=== PATIENT | male | born 1970 | race African-American/Black ===

== ENCOUNTER 2020-10-22 13:58 | Inpatient (IN) | payer OTHER ==
[2020-10-22 15:22] VITALS: BMI 49.8
[2020-10-22] MEDS ORDERED: P-EPHED 60MG/TRIPROLIDI 2.5MG TABLET PO PRN (21:08)
[2020-10-22] MEDS ORDERED: guaiFENesin 200 MG/10 ML 10 ML UNIT-DOSE CUPS PO PRN (21:08)
[2020-10-22] MEDS ORDERED: LOPERAMIDE HCL 2 MG CAPSULE PO PRN (21:08)
[2020-10-22] MEDS ORDERED: MAGNESIUM HYDROX 2400MG/30ML ORAL SUSPENSION 30 ML CUP PO PRN (21:08)
[2020-10-22] MEDS ORDERED: MAGNESIUM CITRATE 300 ML BOTTLE PO PRN (21:08)
[2020-10-22] MEDS ORDERED: AMMONIUM LACTATE 12% LOTION 225 GM BOTTLE TP PRN (21:15)
[2020-10-22] MEDS ORDERED: COLLOIDAL OATMEAL 1 EACH PACKET TP SCH (21:15)
[2020-10-22] MEDS: MELATONIN 5 MG TABLETS PO SCH (22:36)
[2020-10-22] MEDS: THIAMINE HCL 100 MG TABLET (FP) PO SCH (22:36)
[2020-10-22] MEDS: TOLNAFTATE 1% CREAM 15 GM TUBE TP SCH (22:38)
[2020-10-23] MEDS: METHADONE HCL 40 MG DISPERSABLE TABLET PO SCH (09:06)
[2020-10-23] MEDS: PRENATAL VITAMINS W/ FOLIC ACID TABLET (FP) PO SCH (09:07)
[2020-10-23] MEDS: TOLNAFTATE 1% CREAM 15 GM TUBE TP SCH ×2 (09:07→21:17)
[2020-10-23] MEDS: ACETAMINOPHEN 325 MG TABLET (FP) PO PRN ×3 (09:10→21:16)
[2020-10-23 13:10] LABS: URINE APPEARANCE CLEAR; URINE BILIRUBIN NEGATIVE (NEGATIVE); URINE COLOR YELLOW; URINE GLUCOSE (UA) NEGATIVE (NEGATIVE); URINE KETONE NEGATIVE (NEGATIVE); URINE LEUK ESTERASE NEGATIVE (NEGATIVE); URINE NITRITE NEGATIVE (NEGATIVE); URINE PROTEIN NEGATIVE (NEGATIVE); URINE UROBILINOGEN 0.2 mg/dL (0.2-1.0)
[2020-10-23 13:13] LABS: POTASSIUM 4.2 mmol/L (3.5-5.1)
[2020-10-23 13:21] LABS: HEMATOCRIT 39.1 % (35.4-49); HEMOGLOBIN 12.8 GM/dL (11.7-16.9); MCHC 32.9 g/dl (32.0-35.9); MEAN CELL VOLUME 91.3 fl (80-96); MEAN PLT VOLUME 7.3 fl (7.5-11.1); PLATELET COUNT 404 K/MM3 (134-434); RBC 4.28 M/mm3 (4.00-5.60); RDW 14.3 % (11.9-15.9); WHITE BLOOD COUNT 10.5 K/mm3 (4.0-10.0)
[2020-10-23 13:25] LABS: ALBUMIN 3.3 g/dl (3.4-5.0); CALCIUM 8.4 mg/dL (8.5-10.1)
[2020-10-23 13:26] LABS: BLOOD UREA NITROGEN 14.2 mg/dL (7-18)
[2020-10-23 13:29] LABS: BILIRUBIN,TOTAL 0.3 mg/dL (0.2-1); CREATININE 0.9 mg/dL (0.55-1.3)
[2020-10-23 13:30] LABS: TOT PROT 7.3 g/dl (6.4-8.2)
[2020-10-23] MEDS: NICOTINE POLACRILEX 2 MG GUM BC PRN ×2 (14:03→21:18)
[2020-10-23] MEDS: COLLOIDAL OATMEAL 1 BAR EACH TP PRN (14:22)
[2020-10-23] MEDS: hydrOXYzine PAMOATE 25 MG CAPSULE (FP) PO PRN (15:56)
[2020-10-23] MEDS: MELATONIN 5 MG TABLETS PO SCH (21:16)
[2020-10-23] MEDS: THIAMINE HCL 100 MG TABLET (FP) PO SCH (21:17)
[2020-10-24] MEDS: METHADONE HCL 40 MG DISPERSABLE TABLET PO SCH (06:15)
[2020-10-24] MEDS: PRENATAL VITAMINS W/ FOLIC ACID TABLET (FP) PO SCH (09:59)
[2020-10-24] MEDS: TOLNAFTATE 1% CREAM 15 GM TUBE TP SCH ×2 (10:00→22:02)
[2020-10-24] MEDS: ARIPiprazole 15 MG TABLET PO SCH (10:00)
[2020-10-24] MEDS: ACETAMINOPHEN 325 MG TABLET (FP) PO PRN ×2 (10:01→14:55)
[2020-10-24] MEDS: NICOTINE POLACRILEX 2 MG GUM BC PRN ×2 (10:01→14:57)
[2020-10-24] MEDS: MELATONIN 5 MG TABLETS PO SCH (22:02)
[2020-10-24] MEDS: THIAMINE HCL 100 MG TABLET (FP) PO SCH (22:03)
[2020-10-25] MEDS: METHADONE HCL 40 MG DISPERSABLE TABLET PO SCH (06:26)
[2020-10-25] MEDS: PRENATAL VITAMINS W/ FOLIC ACID TABLET (FP) PO SCH (10:07)
[2020-10-25] MEDS: ARIPiprazole 15 MG TABLET PO SCH (10:09)
[2020-10-25] MEDS: MAG HYDROX/AL HYDROX/SIMETH 30 ML UNIT-DOSE CUP PO PRN (10:10)
[2020-10-25] MEDS: ACETAMINOPHEN 325 MG TABLET (FP) PO PRN (10:10)
[2020-10-25] MEDS: NICOTINE POLACRILEX 2 MG GUM BC PRN ×2 (10:13→17:05)
[2020-10-25] MEDS: TOLNAFTATE 1% CREAM 15 GM TUBE TP SCH ×2 (10:33→21:55)
[2020-10-25] MEDS: MELATONIN 5 MG TABLETS PO SCH (21:55)
[2020-10-25] MEDS: THIAMINE HCL 100 MG TABLET (FP) PO SCH (21:55)
[2020-10-26] MEDS: METHADONE HCL 40 MG DISPERSABLE TABLET PO SCH (05:58)
[2020-10-26] MEDS: ARIPiprazole 15 MG TABLET PO SCH (10:08)
[2020-10-26] MEDS: PRENATAL VITAMINS W/ FOLIC ACID TABLET (FP) PO SCH (10:08)
[2020-10-26] MEDS: ACETAMINOPHEN 325 MG TABLET (FP) PO PRN (10:10)
[2020-10-26] MEDS: TOLNAFTATE 1% CREAM 15 GM TUBE TP SCH ×2 (10:12→21:46)
[2020-10-26] MEDS: hydrOXYzine PAMOATE 25 MG CAPSULE (FP) PO PRN (12:45)
[2020-10-26] MEDS: cloNIDine HCL 0.1 MG TABLET PO PRN ×2 (12:45→21:45)
[2020-10-26] MEDS: NICOTINE POLACRILEX 2 MG GUM BC PRN (15:51)
[2020-10-26] MEDS: MELATONIN 5 MG TABLETS PO SCH (21:46)
[2020-10-26] MEDS: THIAMINE HCL 100 MG TABLET (FP) PO SCH (21:46)
[2020-10-27] MEDS: METHADONE HCL 40 MG DISPERSABLE TABLET PO SCH (06:22)
[2020-10-27] MEDS: cloNIDine HCL 0.1 MG TABLET PO PRN ×2 (06:22→21:43)
[2020-10-27] MEDS: NICOTINE POLACRILEX 2 MG GUM BC PRN ×2 (08:38→21:45)
[2020-10-27] MEDS: ARIPiprazole 15 MG TABLET PO SCH (10:07)
[2020-10-27] MEDS: PRENATAL VITAMINS W/ FOLIC ACID TABLET (FP) PO SCH (10:07)
[2020-10-27] MEDS: ACETAMINOPHEN 325 MG TABLET (FP) PO PRN (10:08)
[2020-10-27] MEDS: TOLNAFTATE 1% CREAM 15 GM TUBE TP SCH ×2 (10:09→21:44)
[2020-10-27] MEDS: THIAMINE HCL 100 MG TABLET (FP) PO SCH (21:43)
[2020-10-27] MEDS: MELATONIN 5 MG TABLETS PO SCH (21:44)
[2020-10-28] MEDS: cloNIDine HCL 0.1 MG TABLET PO PRN ×2 (06:14→10:19)
[2020-10-28] MEDS: METHADONE HCL 40 MG DISPERSABLE TABLET PO SCH (06:14)
[2020-10-28] MEDS: NICOTINE POLACRILEX 2 MG GUM BC PRN ×4 (06:18→14:51)
[2020-10-28] MEDS: PRENATAL VITAMINS W/ FOLIC ACID TABLET (FP) PO SCH (10:19)
[2020-10-28] MEDS: TOLNAFTATE 1% CREAM 15 GM TUBE TP SCH ×2 (10:19→21:44)
[2020-10-28] MEDS: ARIPiprazole 15 MG TABLET PO SCH (10:19)
[2020-10-28] MEDS: ACETAMINOPHEN 325 MG TABLET (FP) PO PRN (10:21)
[2020-10-28] MEDS: MELATONIN 5 MG TABLETS PO SCH (21:44)
[2020-10-28] MEDS: THIAMINE HCL 100 MG TABLET (FP) PO SCH (21:45)
[2020-10-29] MEDS: NICOTINE POLACRILEX 2 MG GUM BC PRN ×3 (06:09→12:19)
[2020-10-29] MEDS: cloNIDine HCL 0.1 MG TABLET PO PRN ×2 (06:09→21:22)
[2020-10-29] MEDS: METHADONE HCL 40 MG DISPERSABLE TABLET PO SCH (06:09)
[2020-10-29] MEDS ORDERED: PT OWN MED DRAWER 7, Y5N ONE (08:51)
[2020-10-29] MEDS: ACETAMINOPHEN 325 MG TABLET (FP) PO PRN ×2 (10:03→16:55)
[2020-10-29] MEDS: ARIPiprazole 15 MG TABLET PO SCH (10:03)
[2020-10-29] MEDS: PRENATAL VITAMINS W/ FOLIC ACID TABLET (FP) PO SCH (10:03)
[2020-10-29] MEDS: MAG HYDROX/AL HYDROX/SIMETH 30 ML UNIT-DOSE CUP PO PRN (10:06)
[2020-10-29] MEDS: TOLNAFTATE 1% CREAM 15 GM TUBE TP SCH ×2 (10:10→21:24)
[2020-10-29] MEDS: NICOTINE POLACRILEX 4 MG GUM BUC PRN ×4 (13:34→21:23)
[2020-10-29] MEDS: MELATONIN 5 MG TABLETS PO SCH (21:23)
[2020-10-29] MEDS: THIAMINE HCL 100 MG TABLET (FP) PO SCH (21:23)
[2020-10-30] MEDS: METHADONE HCL 40 MG DISPERSABLE TABLET PO SCH (06:02)
[2020-10-30] MEDS: NICOTINE POLACRILEX 4 MG GUM BUC PRN ×4 (06:05→18:50)
[2020-10-30] MEDS ORDERED: PT OWN MED DRAWER 7, Y5N ONE (09:11)
[2020-10-30] MEDS: TOLNAFTATE 1% CREAM 15 GM TUBE TP SCH ×2 (10:04→21:30)
[2020-10-30] MEDS: ARIPiprazole 15 MG TABLET PO SCH (10:04)
[2020-10-30] MEDS: PRENATAL VITAMINS W/ FOLIC ACID TABLET (FP) PO SCH (10:04)
[2020-10-30] MEDS: ACETAMINOPHEN 325 MG TABLET (FP) PO PRN ×2 (10:05→18:50)
[2020-10-30] MEDS: THIAMINE HCL 100 MG TABLET (FP) PO SCH (21:29)
[2020-10-30] MEDS: MELATONIN 5 MG TABLETS PO SCH (21:29)
[2020-10-31] MEDS: METHADONE HCL 40 MG DISPERSABLE TABLET PO SCH (06:31)
[2020-10-31] MEDS ORDERED: PT OWN MED DRAWER 7, Y5N ONE (09:02)
[2020-10-31] MEDS: ACETAMINOPHEN 325 MG TABLET (FP) PO PRN ×2 (09:55→21:17)
[2020-10-31] MEDS: ARIPiprazole 15 MG TABLET PO SCH (09:56)
[2020-10-31] MEDS: TOLNAFTATE 1% CREAM 15 GM TUBE TP SCH ×2 (09:56→21:51)
[2020-10-31] MEDS: NICOTINE POLACRILEX 4 MG GUM BUC PRN ×4 (09:56→21:18)
[2020-10-31] MEDS: PRENATAL VITAMINS W/ FOLIC ACID TABLET (FP) PO SCH (09:56)
[2020-10-31] MEDS: MAG HYDROX/AL HYDROX/SIMETH 30 ML UNIT-DOSE CUP PO PRN (18:51)
[2020-10-31] MEDS: MELATONIN 5 MG TABLETS PO SCH (21:16)
[2020-10-31] MEDS: cloNIDine HCL 0.1 MG TABLET PO PRN (21:16)
[2020-10-31] MEDS: THIAMINE HCL 100 MG TABLET (FP) PO SCH (21:16)
[2020-11-01] MEDS: cloNIDine HCL 0.1 MG TABLET PO PRN (05:52)
[2020-11-01] MEDS: NICOTINE POLACRILEX 4 MG GUM BUC PRN ×5 (05:52→21:29)
[2020-11-01] MEDS: METHADONE HCL 40 MG DISPERSABLE TABLET PO SCH (05:52)
[2020-11-01] MEDS: PRENATAL VITAMINS W/ FOLIC ACID TABLET (FP) PO SCH (10:08)
[2020-11-01] MEDS: ARIPiprazole 15 MG TABLET PO SCH (10:09)
[2020-11-01] MEDS: ACETAMINOPHEN 325 MG TABLET (FP) PO PRN (10:09)
[2020-11-01] MEDS: TOLNAFTATE 1% CREAM 15 GM TUBE TP SCH ×2 (10:11→21:30)
[2020-11-01] MEDS: LIDOCAINE 5% TOPICAL PATCH TP SCH (14:49)
[2020-11-01] MEDS: METHOCARBAMOL 500 MG TABLET PO SCH ×3 (14:50→21:29)
[2020-11-01] MEDS: THIAMINE HCL 100 MG TABLET (FP) PO SCH (21:29)
[2020-11-01] MEDS: MELATONIN 5 MG TABLETS PO SCH (21:29)
[2020-11-01] MEDS: METHYL SALICYLATE/MENTHOL OINT 30 GM TUBE TP SCH (21:30)
[2020-11-01] MEDS: LIDOCAINE PATCH REMOVAL MC SCH (21:30)
[2020-11-02] MEDS: METHADONE HCL 40 MG DISPERSABLE TABLET PO SCH (05:50)
[2020-11-02] MEDS: cloNIDine HCL 0.1 MG TABLET PO PRN ×2 (05:53→10:02)
[2020-11-02] MEDS: NICOTINE POLACRILEX 4 MG GUM BUC PRN ×6 (05:53→21:12)
[2020-11-02] MEDS: PRENATAL VITAMINS W/ FOLIC ACID TABLET (FP) PO SCH (10:02)
[2020-11-02] MEDS: LIDOCAINE 5% TOPICAL PATCH TP SCH (10:02)
[2020-11-02] MEDS: METHOCARBAMOL 500 MG TABLET PO SCH ×4 (10:02→21:11)
[2020-11-02] MEDS: TOLNAFTATE 1% CREAM 15 GM TUBE TP SCH ×2 (10:03→21:12)
[2020-11-02] MEDS: ARIPiprazole 15 MG TABLET PO SCH (10:03)
[2020-11-02] MEDS: THIAMINE HCL 100 MG TABLET (FP) PO SCH (21:11)
[2020-11-02] MEDS: MELATONIN 5 MG TABLETS PO SCH (21:11)
[2020-11-02] MEDS: METHYL SALICYLATE/MENTHOL OINT 30 GM TUBE TP SCH (21:12)
[2020-11-02] MEDS: LIDOCAINE PATCH REMOVAL MC SCH (21:12)
[2020-11-03] MEDS: cloNIDine HCL 0.1 MG TABLET PO PRN ×2 (06:22→21:34)
[2020-11-03] MEDS: METHADONE HCL 40 MG DISPERSABLE TABLET PO SCH (06:22)
[2020-11-03] MEDS: NICOTINE POLACRILEX 4 MG GUM BUC PRN ×4 (06:23→19:34)
[2020-11-03] MEDS: TOLNAFTATE 1% CREAM 15 GM TUBE TP SCH ×2 (09:58→22:05)
[2020-11-03] MEDS: METHOCARBAMOL 500 MG TABLET PO SCH ×4 (09:58→21:37)
[2020-11-03] MEDS: PRENATAL VITAMINS W/ FOLIC ACID TABLET (FP) PO SCH (09:59)
[2020-11-03] MEDS: ARIPiprazole 15 MG TABLET PO SCH (09:59)
[2020-11-03] MEDS: LIDOCAINE 5% TOPICAL PATCH TP SCH (09:59)
[2020-11-03] MEDS: MELATONIN 5 MG TABLETS PO SCH (21:35)
[2020-11-03] MEDS: LIDOCAINE PATCH REMOVAL MC SCH (21:35)
[2020-11-03] MEDS: METHYL SALICYLATE/MENTHOL OINT 30 GM TUBE TP SCH (21:36)
[2020-11-03] MEDS: THIAMINE HCL 100 MG TABLET (FP) PO SCH (22:05)
[2020-11-04] MEDS: METHADONE HCL 40 MG DISPERSABLE TABLET PO SCH (06:13)
[2020-11-04] MEDS: NICOTINE POLACRILEX 4 MG GUM BUC PRN ×3 (06:13→20:23)
[2020-11-04] MEDS: cloNIDine HCL 0.1 MG TABLET PO PRN (06:13)
[2020-11-04] MEDS: METHOCARBAMOL 500 MG TABLET PO SCH ×4 (10:31→21:42)
[2020-11-04] MEDS: TOLNAFTATE 1% CREAM 15 GM TUBE TP SCH ×2 (10:31→21:42)
[2020-11-04] MEDS: PRENATAL VITAMINS W/ FOLIC ACID TABLET (FP) PO SCH (10:31)
[2020-11-04] MEDS: ARIPiprazole 15 MG TABLET PO SCH (10:31)
[2020-11-04] MEDS: LIDOCAINE 5% TOPICAL PATCH TP SCH (10:31)
[2020-11-04] MEDS: MAG HYDROX/AL HYDROX/SIMETH 30 ML UNIT-DOSE CUP PO PRN (12:01)
[2020-11-04] MEDS: THIAMINE HCL 100 MG TABLET (FP) PO SCH (21:42)
[2020-11-04] MEDS: METHYL SALICYLATE/MENTHOL OINT 30 GM TUBE TP SCH (21:42)
[2020-11-04] MEDS: MELATONIN 5 MG TABLETS PO SCH (21:42)
[2020-11-04] MEDS: LIDOCAINE PATCH REMOVAL MC SCH (21:42)
[2020-11-05] MEDS: METHADONE HCL 40 MG DISPERSABLE TABLET PO SCH (06:36)
[2020-11-05] MEDS: cloNIDine HCL 0.1 MG TABLET PO PRN ×2 (06:36→21:11)
[2020-11-05] MEDS: NICOTINE POLACRILEX 4 MG GUM BUC PRN ×5 (06:38→20:36)
[2020-11-05] MEDS: METHOCARBAMOL 500 MG TABLET PO SCH ×4 (10:17→21:11)
[2020-11-05] MEDS: PRENATAL VITAMINS W/ FOLIC ACID TABLET (FP) PO SCH (10:17)
[2020-11-05] MEDS: LIDOCAINE 5% TOPICAL PATCH TP SCH ×2 (10:18→10:57)
[2020-11-05] MEDS: ARIPiprazole 15 MG TABLET PO SCH (10:18)
[2020-11-05] MEDS: TOLNAFTATE 1% CREAM 15 GM TUBE TP SCH ×2 (10:19→21:12)
[2020-11-05] MEDS: MELATONIN 5 MG TABLETS PO SCH (21:11)
[2020-11-05] MEDS: LIDOCAINE PATCH REMOVAL MC SCH (21:11)
[2020-11-05] MEDS: METHYL SALICYLATE/MENTHOL OINT 30 GM TUBE TP SCH (21:11)
[2020-11-05] MEDS: THIAMINE HCL 100 MG TABLET (FP) PO SCH (21:12)
[2020-11-06] MEDS: METHADONE HCL 40 MG DISPERSABLE TABLET PO SCH (06:24)
[2020-11-06] MEDS: cloNIDine HCL 0.1 MG TABLET PO PRN ×2 (06:25→21:15)
[2020-11-06] MEDS: PRENATAL VITAMINS W/ FOLIC ACID TABLET (FP) PO SCH (09:56)
[2020-11-06] MEDS: ARIPiprazole 15 MG TABLET PO SCH (09:56)
[2020-11-06] MEDS: LIDOCAINE 5% TOPICAL PATCH TP SCH (09:56)
[2020-11-06] MEDS: METHOCARBAMOL 500 MG TABLET PO SCH ×4 (09:56→21:15)
[2020-11-06] MEDS: TOLNAFTATE 1% CREAM 15 GM TUBE TP SCH ×2 (09:57→21:16)
[2020-11-06] MEDS: NICOTINE POLACRILEX 4 MG GUM BUC PRN ×5 (09:58→21:39)
[2020-11-06] MEDS: THIAMINE HCL 100 MG TABLET (FP) PO SCH (21:15)
[2020-11-06] MEDS: MELATONIN 5 MG TABLETS PO SCH (21:15)
[2020-11-06] MEDS: METHYL SALICYLATE/MENTHOL OINT 30 GM TUBE TP SCH (21:16)
[2020-11-06] MEDS: LIDOCAINE PATCH REMOVAL MC SCH (21:16)
[2020-11-07] MEDS: METHADONE HCL 40 MG DISPERSABLE TABLET PO SCH (06:11)
[2020-11-07] MEDS: NICOTINE POLACRILEX 4 MG GUM BUC PRN ×6 (06:11→21:31)
[2020-11-07] MEDS: PRENATAL VITAMINS W/ FOLIC ACID TABLET (FP) PO SCH (10:08)
[2020-11-07] MEDS: METHOCARBAMOL 500 MG TABLET PO SCH ×4 (10:08→21:30)
[2020-11-07] MEDS: ARIPiprazole 15 MG TABLET PO SCH (10:08)
[2020-11-07] MEDS: TOLNAFTATE 1% CREAM 15 GM TUBE TP SCH ×2 (10:08→21:31)
[2020-11-07] MEDS: LIDOCAINE 5% TOPICAL PATCH TP SCH (10:09)
[2020-11-07] MEDS: MAG HYDROX/AL HYDROX/SIMETH 30 ML UNIT-DOSE CUP PO PRN (10:09)
[2020-11-07] MEDS ORDERED: MASKS NR ONE (10:44)
[2020-11-07] MEDS: MELATONIN 5 MG TABLETS PO SCH (21:30)
[2020-11-07] MEDS: THIAMINE HCL 100 MG TABLET (FP) PO SCH (21:30)
[2020-11-07] MEDS: LIDOCAINE PATCH REMOVAL MC SCH (21:30)
[2020-11-07] MEDS: METHYL SALICYLATE/MENTHOL OINT 30 GM TUBE TP SCH (21:31)
[2020-11-08] MEDS: cloNIDine HCL 0.1 MG TABLET PO PRN ×2 (06:11→21:15)
[2020-11-08] MEDS: METHADONE HCL 40 MG DISPERSABLE TABLET PO SCH (06:11)
[2020-11-08] MEDS: NICOTINE POLACRILEX 4 MG GUM BUC PRN ×6 (06:12→22:26)
[2020-11-08] MEDS: METHOCARBAMOL 500 MG TABLET PO SCH ×4 (10:13→21:15)
[2020-11-08] MEDS: PRENATAL VITAMINS W/ FOLIC ACID TABLET (FP) PO SCH (10:13)
[2020-11-08] MEDS: LIDOCAINE 5% TOPICAL PATCH TP SCH (10:13)
[2020-11-08] MEDS: ARIPiprazole 15 MG TABLET PO SCH (10:13)
[2020-11-08] MEDS: TOLNAFTATE 1% CREAM 15 GM TUBE TP SCH ×2 (10:14→21:16)
[2020-11-08] MEDS: THIAMINE HCL 100 MG TABLET (FP) PO SCH (21:14)
[2020-11-08] MEDS: MELATONIN 5 MG TABLETS PO SCH (21:16)
[2020-11-08] MEDS: METHYL SALICYLATE/MENTHOL OINT 30 GM TUBE TP SCH (21:16)
[2020-11-08] MEDS: LIDOCAINE PATCH REMOVAL MC SCH (21:16)
[2020-11-09] MEDS: cloNIDine HCL 0.1 MG TABLET PO PRN ×2 (06:29→21:33)
[2020-11-09] MEDS: NICOTINE POLACRILEX 4 MG GUM BUC PRN ×6 (06:29→21:34)
[2020-11-09] MEDS: METHADONE HCL 40 MG DISPERSABLE TABLET PO SCH (06:29)
[2020-11-09] MEDS: PRENATAL VITAMINS W/ FOLIC ACID TABLET (FP) PO SCH (10:18)
[2020-11-09] MEDS: ARIPiprazole 15 MG TABLET PO SCH (10:18)
[2020-11-09] MEDS: METHOCARBAMOL 500 MG TABLET PO SCH ×4 (10:18→21:33)
[2020-11-09] MEDS: LIDOCAINE 5% TOPICAL PATCH TP SCH (10:18)
[2020-11-09] MEDS: TOLNAFTATE 1% CREAM 15 GM TUBE TP SCH ×2 (10:18→21:33)
[2020-11-09] MEDS: THIAMINE HCL 100 MG TABLET (FP) PO SCH (21:33)
[2020-11-09] MEDS: METHYL SALICYLATE/MENTHOL OINT 30 GM TUBE TP SCH (21:35)
[2020-11-09] MEDS: LIDOCAINE PATCH REMOVAL MC SCH (21:56)
[2020-11-09] MEDS: MELATONIN 5 MG TABLETS PO SCH (21:56)
[2020-11-10] MEDS: METHADONE HCL 40 MG DISPERSABLE TABLET PO SCH (05:55)
[2020-11-10] MEDS: cloNIDine HCL 0.1 MG TABLET PO PRN ×2 (05:55→21:07)
[2020-11-10] MEDS: NICOTINE POLACRILEX 4 MG GUM BUC PRN ×5 (05:56→20:08)
[2020-11-10] MEDS: PRENATAL VITAMINS W/ FOLIC ACID TABLET (FP) PO SCH (10:03)
[2020-11-10] MEDS: TOLNAFTATE 1% CREAM 15 GM TUBE TP SCH ×2 (10:03→21:08)
[2020-11-10] MEDS: LIDOCAINE 5% TOPICAL PATCH TP SCH (10:03)
[2020-11-10] MEDS: ARIPiprazole 15 MG TABLET PO SCH (10:03)
[2020-11-10] MEDS: METHOCARBAMOL 500 MG TABLET PO SCH ×4 (10:03→21:07)
[2020-11-10] MEDS: METHYL SALICYLATE/MENTHOL OINT 30 GM TUBE TP SCH (21:08)
[2020-11-10] MEDS: THIAMINE HCL 100 MG TABLET (FP) PO SCH (21:08)
[2020-11-10] MEDS: LIDOCAINE PATCH REMOVAL MC SCH (21:08)
[2020-11-10] MEDS: MELATONIN 5 MG TABLETS PO SCH (21:08)
[2020-11-11] MEDS: METHADONE HCL 40 MG DISPERSABLE TABLET PO SCH (06:38)
[2020-11-11] MEDS: NICOTINE POLACRILEX 4 MG GUM BUC PRN ×4 (06:38→16:41)
[2020-11-11] MEDS: cloNIDine HCL 0.1 MG TABLET PO PRN (06:38)
[2020-11-11] MEDS: METHOCARBAMOL 500 MG TABLET PO SCH ×4 (09:53→22:30)
[2020-11-11] MEDS: PRENATAL VITAMINS W/ FOLIC ACID TABLET (FP) PO SCH (09:53)
[2020-11-11] MEDS: LIDOCAINE 5% TOPICAL PATCH TP SCH (09:53)
[2020-11-11] MEDS: ARIPiprazole 15 MG TABLET PO SCH (09:53)
[2020-11-11] MEDS: TOLNAFTATE 1% CREAM 15 GM TUBE TP SCH ×2 (10:25→22:30)
[2020-11-11] MEDS: THIAMINE HCL 100 MG TABLET (FP) PO SCH (22:30)
[2020-11-11] MEDS: METHYL SALICYLATE/MENTHOL OINT 30 GM TUBE TP SCH (22:30)
[2020-11-11] MEDS: MELATONIN 5 MG TABLETS PO SCH (22:30)
[2020-11-11] MEDS: LIDOCAINE PATCH REMOVAL MC SCH (22:30)
[2020-11-12] MEDS: cloNIDine HCL 0.1 MG TABLET PO PRN (06:07)
[2020-11-12] MEDS: METHADONE HCL 40 MG DISPERSABLE TABLET PO SCH (06:07)
[2020-11-12] MEDS: NICOTINE POLACRILEX 4 MG GUM BUC PRN ×4 (08:31→16:02)
[2020-11-12] MEDS: METHOCARBAMOL 500 MG TABLET PO SCH ×4 (10:31→23:02)
[2020-11-12] MEDS: PRENATAL VITAMINS W/ FOLIC ACID TABLET (FP) PO SCH (10:31)
[2020-11-12] MEDS: ARIPiprazole 15 MG TABLET PO SCH (10:31)
[2020-11-12] MEDS: TOLNAFTATE 1% CREAM 15 GM TUBE TP SCH ×2 (10:31→23:02)
[2020-11-12] MEDS: LIDOCAINE 5% TOPICAL PATCH TP SCH (10:33)
[2020-11-12] MEDS: LIDOCAINE PATCH REMOVAL MC SCH (22:25)
[2020-11-12] MEDS: MELATONIN 5 MG TABLETS PO SCH (22:25)
[2020-11-12] MEDS: METHYL SALICYLATE/MENTHOL OINT 30 GM TUBE TP SCH (22:25)
[2020-11-12] MEDS: THIAMINE HCL 100 MG TABLET (FP) PO SCH (23:03)
[2020-11-13] MEDS: METHADONE HCL 40 MG DISPERSABLE TABLET PO SCH (05:54)
[2020-11-13] MEDS: NICOTINE POLACRILEX 4 MG GUM BUC PRN ×6 (05:55→23:20)
[2020-11-13] MEDS: cloNIDine HCL 0.1 MG TABLET PO PRN ×2 (06:27→21:28)
[2020-11-13] MEDS: METHOCARBAMOL 500 MG TABLET PO SCH ×4 (10:06→21:27)
[2020-11-13] MEDS: ARIPiprazole 15 MG TABLET PO SCH (10:06)
[2020-11-13] MEDS: LIDOCAINE 5% TOPICAL PATCH TP SCH (10:06)
[2020-11-13] MEDS: PRENATAL VITAMINS W/ FOLIC ACID TABLET (FP) PO SCH (10:07)
[2020-11-13] MEDS: TOLNAFTATE 1% CREAM 15 GM TUBE TP SCH ×2 (10:07→21:28)
[2020-11-13] MEDS: THIAMINE HCL 100 MG TABLET (FP) PO SCH (21:27)
[2020-11-13] MEDS: MELATONIN 5 MG TABLETS PO SCH (21:28)
[2020-11-13] MEDS: LIDOCAINE PATCH REMOVAL MC SCH (21:28)
[2020-11-13] MEDS: METHYL SALICYLATE/MENTHOL OINT 30 GM TUBE TP SCH (21:28)
[2020-11-14] MEDS: NICOTINE POLACRILEX 4 MG GUM BUC PRN ×7 (06:19→22:09)
[2020-11-14] MEDS: METHADONE HCL 40 MG DISPERSABLE TABLET PO SCH (06:19)
[2020-11-14] MEDS: cloNIDine HCL 0.1 MG TABLET PO PRN ×2 (06:19→21:22)
[2020-11-14] MEDS: METHOCARBAMOL 500 MG TABLET PO SCH ×4 (10:21→21:22)
[2020-11-14] MEDS: LIDOCAINE 5% TOPICAL PATCH TP SCH (10:21)
[2020-11-14] MEDS: PRENATAL VITAMINS W/ FOLIC ACID TABLET (FP) PO SCH (10:21)
[2020-11-14] MEDS: TOLNAFTATE 1% CREAM 15 GM TUBE TP SCH ×2 (10:21→21:23)
[2020-11-14] MEDS: ARIPiprazole 15 MG TABLET PO SCH (10:21)
[2020-11-14] MEDS: THIAMINE HCL 100 MG TABLET (FP) PO SCH (21:23)
[2020-11-14] MEDS: LIDOCAINE PATCH REMOVAL MC SCH (21:23)
[2020-11-14] MEDS: MELATONIN 5 MG TABLETS PO SCH (21:23)
[2020-11-14] MEDS: METHYL SALICYLATE/MENTHOL OINT 30 GM TUBE TP SCH (21:23)
[2020-11-15] MEDS: METHADONE HCL 40 MG DISPERSABLE TABLET PO SCH (06:28)
[2020-11-15] MEDS: cloNIDine HCL 0.1 MG TABLET PO PRN (06:28)
[2020-11-15] MEDS: NICOTINE POLACRILEX 4 MG GUM BUC PRN ×6 (06:29→22:51)
[2020-11-15] MEDS: METHOCARBAMOL 500 MG TABLET PO SCH ×4 (10:09→22:45)
[2020-11-15] MEDS: LIDOCAINE 5% TOPICAL PATCH TP SCH (10:09)
[2020-11-15] MEDS: PRENATAL VITAMINS W/ FOLIC ACID TABLET (FP) PO SCH (10:09)
[2020-11-15] MEDS: ARIPiprazole 15 MG TABLET PO SCH (10:09)
[2020-11-15] MEDS: TOLNAFTATE 1% CREAM 15 GM TUBE TP SCH ×2 (10:10→22:52)
[2020-11-15] MEDS: LIDOCAINE PATCH REMOVAL MC SCH (22:45)
[2020-11-15] MEDS: METHYL SALICYLATE/MENTHOL OINT 30 GM TUBE TP SCH (22:52)
[2020-11-15] MEDS: THIAMINE HCL 100 MG TABLET (FP) PO SCH (22:52)
[2020-11-15] MEDS: MELATONIN 5 MG TABLETS PO SCH (22:52)
[2020-11-16] MEDS: NICOTINE POLACRILEX 4 MG GUM BUC PRN ×4 (06:40→21:51)
[2020-11-16] MEDS: cloNIDine HCL 0.1 MG TABLET PO PRN (06:40)
[2020-11-16] MEDS: METHADONE HCL 40 MG DISPERSABLE TABLET PO SCH (06:40)
[2020-11-16] MEDS: LIDOCAINE 5% TOPICAL PATCH TP SCH (10:11)
[2020-11-16] MEDS: METHOCARBAMOL 500 MG TABLET PO SCH ×4 (10:12→21:51)
[2020-11-16] MEDS: ARIPiprazole 15 MG TABLET PO SCH (10:12)
[2020-11-16] MEDS: TOLNAFTATE 1% CREAM 15 GM TUBE TP SCH ×2 (10:13→21:51)
[2020-11-16] MEDS: MAG HYDROX/AL HYDROX/SIMETH 30 ML UNIT-DOSE CUP PO PRN (10:13)
[2020-11-16] MEDS: COLLOIDAL OATMEAL 1 BAR EACH TP PRN (10:14)
[2020-11-16] MEDS: PRENATAL VITAMINS W/ FOLIC ACID TABLET (FP) PO SCH (10:45)
[2020-11-16] MEDS: MELATONIN 5 MG TABLETS PO SCH (21:51)
[2020-11-16] MEDS: METHYL SALICYLATE/MENTHOL OINT 30 GM TUBE TP SCH (21:51)
[2020-11-16] MEDS: THIAMINE HCL 100 MG TABLET (FP) PO SCH (21:51)
[2020-11-16] MEDS: LIDOCAINE PATCH REMOVAL MC SCH (21:51)
[2020-11-17] MEDS: METHADONE HCL 40 MG DISPERSABLE TABLET PO SCH (06:19)
[2020-11-17] MEDS: cloNIDine HCL 0.1 MG TABLET PO PRN (06:19)
[2020-11-17] MEDS: NICOTINE POLACRILEX 4 MG GUM BUC PRN ×4 (08:28→19:48)
[2020-11-17] MEDS: PRENATAL VITAMINS W/ FOLIC ACID TABLET (FP) PO SCH (10:09)
[2020-11-17] MEDS: METHOCARBAMOL 500 MG TABLET PO SCH ×4 (10:09→22:10)
[2020-11-17] MEDS: ARIPiprazole 15 MG TABLET PO SCH (10:09)
[2020-11-17] MEDS: LIDOCAINE 5% TOPICAL PATCH TP SCH (10:09)
[2020-11-17] MEDS: TOLNAFTATE 1% CREAM 15 GM TUBE TP SCH ×2 (10:10→22:11)
[2020-11-17] MEDS: MELATONIN 5 MG TABLETS PO SCH (22:10)
[2020-11-17] MEDS: LIDOCAINE PATCH REMOVAL MC SCH (22:10)
[2020-11-17] MEDS: METHYL SALICYLATE/MENTHOL OINT 30 GM TUBE TP SCH (22:10)
[2020-11-17] MEDS: THIAMINE HCL 100 MG TABLET (FP) PO SCH (22:11)
[2020-11-18] MEDS: METHADONE HCL 40 MG DISPERSABLE TABLET PO SCH (06:36)
[2020-11-18] MEDS: cloNIDine HCL 0.1 MG TABLET PO PRN (06:36)
[2020-11-18] MEDS: NICOTINE POLACRILEX 4 MG GUM BUC PRN ×4 (06:36→22:38)
[2020-11-18] MEDS: TOLNAFTATE 1% CREAM 15 GM TUBE TP SCH ×2 (09:46→22:39)
[2020-11-18] MEDS: METHOCARBAMOL 500 MG TABLET PO SCH ×4 (09:46→22:39)
[2020-11-18] MEDS: LIDOCAINE 5% TOPICAL PATCH TP SCH (09:46)
[2020-11-18] MEDS: ARIPiprazole 15 MG TABLET PO SCH (09:46)
[2020-11-18] MEDS: PRENATAL VITAMINS W/ FOLIC ACID TABLET (FP) PO SCH (09:47)
[2020-11-18] MEDS: LIDOCAINE PATCH REMOVAL MC SCH (22:38)
[2020-11-18] MEDS: METHYL SALICYLATE/MENTHOL OINT 30 GM TUBE TP SCH (22:38)
[2020-11-18] MEDS: THIAMINE HCL 100 MG TABLET (FP) PO SCH (22:39)
[2020-11-18] MEDS: MELATONIN 5 MG TABLETS PO SCH (22:39)
[2020-11-19] MEDS: METHADONE HCL 40 MG DISPERSABLE TABLET PO SCH (06:18)
[2020-11-19] MEDS: cloNIDine HCL 0.1 MG TABLET PO PRN (06:18)
[2020-11-19] MEDS: NICOTINE POLACRILEX 4 MG GUM BUC PRN (06:20)
[2020-11-19 06:38] VITALS: BP 156/89; PULSE 86; TEMP 96.8
[2020-11-19] MEDS: ARIPiprazole 15 MG TABLET PO SCH (08:50)
[2020-11-19] MEDS: PRENATAL VITAMINS W/ FOLIC ACID TABLET (FP) PO SCH (09:12)
[2020-11-19] MEDS: TOLNAFTATE 1% CREAM 15 GM TUBE TP SCH (09:12)
[2020-11-19] MEDS: LIDOCAINE 5% TOPICAL PATCH TP SCH (09:12)
[2020-11-19] MEDS: METHOCARBAMOL 500 MG TABLET PO SCH (09:12)
== END 2020-11-19 09:00 | disposition home or self-care (01) | DRG 772 ==
LOC: YASAS 13:58 → Y3W 21:15
PROVIDERS: ADMIT Allergy & Immunology; ATTEND Allergy & Immunology
PROC: HZ42ZZZ Group Counseling for Substance Abuse Treatment, Cognitive-Behavioral (ICD-10-PCS; principal; 2020-10-22)
DX: F11.20 Opioid dependence, uncomplicated (principal); F14.20 Cocaine dependence, uncomplicated; F13.20 Sedative, hypnotic or anxiolytic dependence, uncomplicated; F17.210 Nicotine dependence, cigarettes, uncomplicated; F25.9 Schizoaffective disorder, unspecified; F32.9 Major depressive disorder, single episode, unspecified; G62.9 Polyneuropathy, unspecified; D51.0 Vitamin B12 deficiency anemia due to intrinsic factor deficiency; E53.9 Vitamin B deficiency, unspecified; G47.00 Insomnia, unspecified; M10.9 Gout, unspecified; M54.5 Low back pain; G89.29 Other chronic pain; B35.3 Tinea pedis; R94.31 Abnormal electrocardiogram [ECG] [EKG]; R01.1 Cardiac murmur, unspecified; E66.09 Other obesity due to excess calories; Z68.42 Body mass index [BMI] 45.0-49.9, adult; Z88.6 Allergy status to analgesic agent; Z88.8 Allergy status to other drugs, medicaments and biological substances
CPT/HCPCS: 36415; 80053; 81003; 82962; 84550; 85027; 86780; 93005; 93010; C9803; J0735; U0003

== ENCOUNTER 2021-05-11 12:18 | Inpatient (IN) | payer OTHER ==
[2021-05-11 13:58] VITALS: BMI 47.5
[2021-05-11] MEDS ORDERED: P-EPHED 60MG/TRIPROLIDI 2.5MG TABLET PO PRN (17:03)
[2021-05-11] MEDS ORDERED: LOPERAMIDE HCL 2 MG CAPSULE PO PRN (17:03)
[2021-05-11] MEDS ORDERED: guaiFENesin 200 MG/10 ML 10 ML UNIT-DOSE CUPS PO PRN (17:03)
[2021-05-11] MEDS ORDERED: MAGNESIUM CITRATE 300 ML BOTTLE PO PRN (17:03)
[2021-05-11] MEDS ORDERED: NICOTINE 10 MG CARTRIDGE (INHALER) IH PRN (17:03)
[2021-05-11] MEDS ORDERED: ACETAMINOPHEN 325 MG TABLET (FP) PO PRN (17:03)
[2021-05-11] MEDS: hydrOXYzine PAMOATE 25 MG CAPSULE (FP) PO SCH ×2 (17:47→21:18)
[2021-05-11] MEDS: THIAMINE HCL 100 MG TABLET (FP) PO SCH (21:18)
[2021-05-11] MEDS: MELATONIN 5 MG TABLETS PO SCH (21:19)
[2021-05-11] MEDS: CLOTRIMAZOLE 1% CREAM TP SCH (21:19)
[2021-05-12] MEDS: hydrOXYzine PAMOATE 25 MG CAPSULE (FP) PO SCH ×5 (07:00→22:17)
[2021-05-12] MEDS ORDERED: methaDONE HCL 40 MG DISPERSABLE TABLET ONE (07:30)
[2021-05-12] MEDS ORDERED: methaDONE HCL 10 MG TABLET PO SCH (07:30)
[2021-05-12] MEDS ORDERED: methaDONE HCL 10 MG TABLET ONE (07:30)
[2021-05-12] MEDS: cloNIDine HCL 0.1 MG TABLET PO SCH (09:54)
[2021-05-12] MEDS: NICOTINE 7 MG/24 HOURS TOPICAL PATCH TD SCH (09:54)
[2021-05-12] MEDS: PRENATAL VITAMINS W/ FOLIC ACID TABLET (FP) PO SCH ×2 (09:54→10:25)
[2021-05-12] MEDS: NICOTINE POLACRILEX 4 MG GUM BC PRN ×2 (09:55→15:53)
[2021-05-12] MEDS: CLOTRIMAZOLE 1% CREAM TP SCH (10:00)
[2021-05-12] MEDS ORDERED: ARIPiprazole 15 MG TABLET PO SCH (10:00)
[2021-05-12 12:14] LABS: HEMATOCRIT 39.7 % (35.4-49); HEMOGLOBIN 13.3 GM/dL (11.7-16.9); MCH 32.2 pg (25.7-33.7); MCHC 33.5 g/dl (32.0-35.9); MEAN CELL VOLUME 96.2 fl (80-96); MEAN PLT VOLUME 7.1 fl (7.5-11.1); PLATELET COUNT 463 10^3/uL (134-434); RBC 4.13 M/mm3 (4.00-5.60); RDW 15.5 % (11.9-15.9); WHITE BLOOD COUNT 8.6 K/mm3 (4.0-10.0)
[2021-05-12 12:20] LABS: CALCIUM 8.5 mg/dL (8.5-10.1)
[2021-05-12 12:21] LABS: ALBUMIN 3.3 g/dl (3.4-5.0); BLOOD UREA NITROGEN 13.1 mg/dL (7-18)
[2021-05-12 12:25] LABS: BILIRUBIN,TOTAL 0.4 mg/dL (0.2-1); CREATININE 0.8 mg/dL (0.55-1.3); TOT PROT 7.6 g/dl (6.4-8.2)
[2021-05-12 12:37] LABS: SYPHILIS W/ RPR CONF NON-REACTIVE (NONREACTIVE)
[2021-05-12] MEDS: LIDOCAINE 5% TOPICAL PATCH TP SCH (13:34)
[2021-05-12] MEDS: TOLNAFTATE 1% POWDER 45 GM POW TP SCH ×2 (13:34→22:17)
[2021-05-12] MEDS ORDERED: PT OWN MED DRAWER 7, Y5N ONE (15:50)
[2021-05-12] MEDS: THIAMINE HCL 100 MG TABLET (FP) PO SCH (22:17)
[2021-05-12] MEDS: MELATONIN 5 MG TABLETS PO SCH (22:17)
[2021-05-12] MEDS: LIDOCAINE PATCH REMOVAL MC SCH (22:18)
[2021-05-13] MEDS ORDERED: methaDONE HCL 40 MG DISPERSABLE TABLET ONE (03:06)
[2021-05-13] MEDS ORDERED: methaDONE HCL 10 MG TABLET ONE (03:06)
[2021-05-13] MEDS: NICOTINE POLACRILEX 4 MG GUM BC PRN ×2 (06:33→16:52)
[2021-05-13] MEDS: hydrOXYzine PAMOATE 25 MG CAPSULE (FP) PO SCH ×2 (06:53→10:19)
[2021-05-13] MEDS: PRENATAL VITAMINS W/ FOLIC ACID TABLET (FP) PO SCH (10:17)
[2021-05-13] MEDS: NICOTINE 7 MG/24 HOURS TOPICAL PATCH TD SCH (10:18)
[2021-05-13] MEDS: LIDOCAINE 5% TOPICAL PATCH TP SCH (10:18)
[2021-05-13] MEDS: TOLNAFTATE 1% POWDER 45 GM POW TP SCH ×2 (10:18→22:28)
[2021-05-13] MEDS: ARIPiprazole 10 MG TABLET PO SCH (10:18)
[2021-05-13] MEDS: cloNIDine HCL 0.1 MG TABLET PO SCH (10:18)
[2021-05-13 11:18] LABS: URINE APPEARANCE CLEAR; URINE BILIRUBIN NEGATIVE (NEGATIVE); URINE COLOR YELLOW; URINE GLUCOSE (UA) NEGATIVE (NEGATIVE); URINE KETONE NEGATIVE (NEGATIVE); URINE LEUK ESTERASE NEGATIVE (NEGATIVE); URINE NITRITE NEGATIVE (NEGATIVE); URINE PROTEIN NEGATIVE (NEGATIVE)
[2021-05-13] MEDS ORDERED: hydrOXYzine PAMOATE 25 MG CAPSULE (FP) PO PRN (11:26)
[2021-05-13] MEDS: MELATONIN 5 MG TABLETS PO SCH (22:28)
[2021-05-13] MEDS: THIAMINE HCL 100 MG TABLET (FP) PO SCH (22:29)
[2021-05-13] MEDS: LIDOCAINE PATCH REMOVAL MC SCH (22:36)
[2021-05-14] MEDS ORDERED: methaDONE HCL 10 MG TABLET ONE (03:14)
[2021-05-14] MEDS ORDERED: methaDONE HCL 40 MG DISPERSABLE TABLET ONE (03:14)
[2021-05-14] MEDS: NICOTINE POLACRILEX 4 MG GUM BC PRN ×3 (06:03→17:05)
[2021-05-14] MEDS ORDERED: PT OWN MED DRAWER 7, Y5N ONE ×2 (08:53→09:58)
[2021-05-14] MEDS: cloNIDine HCL 0.1 MG TABLET PO SCH (09:55)
[2021-05-14] MEDS: LIDOCAINE 5% TOPICAL PATCH TP SCH (09:55)
[2021-05-14] MEDS: ARIPiprazole 10 MG TABLET PO SCH (09:55)
[2021-05-14] MEDS: PRENATAL VITAMINS W/ FOLIC ACID TABLET (FP) PO SCH (09:56)
[2021-05-14] MEDS: NICOTINE 7 MG/24 HOURS TOPICAL PATCH TD SCH (09:56)
[2021-05-14] MEDS: TOLNAFTATE 1% POWDER 45 GM POW TP SCH ×2 (09:58→21:54)
[2021-05-14] MEDS: LIDOCAINE PATCH REMOVAL MC SCH (21:54)
[2021-05-14] MEDS: THIAMINE HCL 100 MG TABLET (FP) PO SCH (21:54)
[2021-05-14] MEDS: MELATONIN 5 MG TABLETS PO SCH (21:54)
[2021-05-15] MEDS ORDERED: methaDONE HCL 40 MG DISPERSABLE TABLET ONE (03:11)
[2021-05-15] MEDS ORDERED: methaDONE HCL 10 MG TABLET ONE (03:11)
[2021-05-15] MEDS: NICOTINE POLACRILEX 4 MG GUM BC PRN ×2 (06:07→09:43)
[2021-05-15] MEDS ORDERED: PT OWN MED DRAWER 7, Y5N ONE (08:44)
[2021-05-15] MEDS: PRENATAL VITAMINS W/ FOLIC ACID TABLET (FP) PO SCH (09:42)
[2021-05-15] MEDS: NICOTINE 7 MG/24 HOURS TOPICAL PATCH TD SCH (09:42)
[2021-05-15] MEDS: TOLNAFTATE 1% POWDER 45 GM POW TP SCH ×2 (09:42→22:22)
[2021-05-15] MEDS: LIDOCAINE 5% TOPICAL PATCH TP SCH (09:42)
[2021-05-15] MEDS: ARIPiprazole 10 MG TABLET PO SCH (09:42)
[2021-05-15] MEDS: cloNIDine HCL 0.1 MG TABLET PO SCH (10:14)
[2021-05-15] MEDS: LIDOCAINE PATCH REMOVAL MC SCH (22:21)
[2021-05-15] MEDS: THIAMINE HCL 100 MG TABLET (FP) PO SCH (22:22)
[2021-05-15] MEDS: MELATONIN 5 MG TABLETS PO SCH (22:22)
[2021-05-16] MEDS ORDERED: methaDONE HCL 40 MG DISPERSABLE TABLET ONE (03:12)
[2021-05-16] MEDS ORDERED: methaDONE HCL 10 MG TABLET ONE (03:13)
[2021-05-16] MEDS: TOLNAFTATE 1% POWDER 45 GM POW TP SCH ×2 (10:07→21:38)
[2021-05-16] MEDS: ARIPiprazole 10 MG TABLET PO SCH (10:07)
[2021-05-16] MEDS: cloNIDine HCL 0.1 MG TABLET PO SCH (10:07)
[2021-05-16] MEDS: PRENATAL VITAMINS W/ FOLIC ACID TABLET (FP) PO SCH (10:09)
[2021-05-16] MEDS: LIDOCAINE 5% TOPICAL PATCH TP SCH (10:09)
[2021-05-16] MEDS: NICOTINE 7 MG/24 HOURS TOPICAL PATCH TD SCH (10:09)
[2021-05-16] MEDS: NICOTINE POLACRILEX 4 MG GUM BC PRN (10:11)
[2021-05-16] MEDS: MELATONIN 5 MG TABLETS PO SCH (21:38)
[2021-05-16] MEDS: THIAMINE HCL 100 MG TABLET (FP) PO SCH (21:38)
[2021-05-16] MEDS: LIDOCAINE PATCH REMOVAL MC SCH (21:38)
[2021-05-17] MEDS ORDERED: methaDONE HCL 10 MG TABLET ONE (03:14)
[2021-05-17] MEDS ORDERED: methaDONE HCL 40 MG DISPERSABLE TABLET ONE (03:14)
[2021-05-17] MEDS: ARIPiprazole 10 MG TABLET PO SCH (10:04)
[2021-05-17] MEDS: LIDOCAINE 5% TOPICAL PATCH TP SCH (10:05)
[2021-05-17] MEDS: PRENATAL VITAMINS W/ FOLIC ACID TABLET (FP) PO SCH (10:05)
[2021-05-17] MEDS: cloNIDine HCL 0.1 MG TABLET PO SCH (10:05)
[2021-05-17] MEDS: TOLNAFTATE 1% POWDER 45 GM POW TP SCH ×2 (10:05→21:58)
[2021-05-17] MEDS: NICOTINE 7 MG/24 HOURS TOPICAL PATCH TD SCH (10:05)
[2021-05-17] MEDS: LIDOCAINE PATCH REMOVAL MC SCH (21:58)
[2021-05-17] MEDS: THIAMINE HCL 100 MG TABLET (FP) PO SCH (21:58)
[2021-05-17] MEDS: MELATONIN 5 MG TABLETS PO SCH (21:58)
[2021-05-18] MEDS ORDERED: methaDONE HCL 40 MG DISPERSABLE TABLET ONE (03:15)
[2021-05-18] MEDS ORDERED: methaDONE HCL 10 MG TABLET ONE (03:16)
[2021-05-18] MEDS: NICOTINE POLACRILEX 4 MG GUM BC PRN ×2 (06:24→10:17)
[2021-05-18] MEDS: LIDOCAINE 5% TOPICAL PATCH TP SCH (10:14)
[2021-05-18] MEDS: cloNIDine HCL 0.1 MG TABLET PO SCH (10:14)
[2021-05-18] MEDS: ARIPiprazole 10 MG TABLET PO SCH (10:15)
[2021-05-18] MEDS: TOLNAFTATE 1% POWDER 45 GM POW TP SCH ×2 (10:16→21:33)
[2021-05-18] MEDS: PRENATAL VITAMINS W/ FOLIC ACID TABLET (FP) PO SCH (10:16)
[2021-05-18] MEDS: NICOTINE 7 MG/24 HOURS TOPICAL PATCH TD SCH (10:16)
[2021-05-18] MEDS: THIAMINE HCL 100 MG TABLET (FP) PO SCH (21:33)
[2021-05-18] MEDS: LIDOCAINE PATCH REMOVAL MC SCH (21:33)
[2021-05-18] MEDS: MELATONIN 5 MG TABLETS PO SCH (21:33)
[2021-05-19] MEDS ORDERED: methaDONE HCL 10 MG TABLET ONE (03:12)
[2021-05-19] MEDS ORDERED: methaDONE HCL 40 MG DISPERSABLE TABLET ONE (03:12)
[2021-05-19] MEDS: NICOTINE POLACRILEX 4 MG GUM BC PRN ×2 (06:06→09:06)
[2021-05-19] MEDS: ARIPiprazole 10 MG TABLET PO SCH (09:04)
[2021-05-19] MEDS: cloNIDine HCL 0.1 MG TABLET PO SCH (09:04)
[2021-05-19] MEDS: LIDOCAINE 5% TOPICAL PATCH TP SCH (09:05)
[2021-05-19] MEDS: PRENATAL VITAMINS W/ FOLIC ACID TABLET (FP) PO SCH (09:06)
[2021-05-19] MEDS: NICOTINE 7 MG/24 HOURS TOPICAL PATCH TD SCH (09:06)
[2021-05-19] MEDS: TOLNAFTATE 1% POWDER 45 GM POW TP SCH ×2 (09:22→21:37)
[2021-05-19] MEDS: THIAMINE HCL 100 MG TABLET (FP) PO SCH (21:37)
[2021-05-19] MEDS: MELATONIN 5 MG TABLETS PO SCH (21:37)
[2021-05-19] MEDS: LIDOCAINE PATCH REMOVAL MC SCH (21:37)
[2021-05-20] MEDS ORDERED: methaDONE HCL 40 MG DISPERSABLE TABLET ONE (04:00)
[2021-05-20] MEDS ORDERED: methaDONE HCL 10 MG TABLET ONE (04:01)
[2021-05-20] MEDS ORDERED: methaDONE HCL 10 MG TABLET PO SCH (06:00)
[2021-05-20] MEDS: NICOTINE POLACRILEX 4 MG GUM BC PRN ×2 (06:06→19:56)
[2021-05-20] MEDS: ARIPiprazole 10 MG TABLET PO SCH (09:45)
[2021-05-20] MEDS: PRENATAL VITAMINS W/ FOLIC ACID TABLET (FP) PO SCH (09:45)
[2021-05-20] MEDS: cloNIDine HCL 0.1 MG TABLET PO SCH (09:45)
[2021-05-20] MEDS: NICOTINE 7 MG/24 HOURS TOPICAL PATCH TD SCH (09:46)
[2021-05-20] MEDS: LIDOCAINE 5% TOPICAL PATCH TP SCH (09:46)
[2021-05-20] MEDS: TOLNAFTATE 1% POWDER 45 GM POW TP SCH ×2 (10:23→21:42)
[2021-05-20] MEDS: MELATONIN 5 MG TABLETS PO SCH (21:42)
[2021-05-20] MEDS: LIDOCAINE PATCH REMOVAL MC SCH (21:42)
[2021-05-20] MEDS: THIAMINE HCL 100 MG TABLET (FP) PO SCH (21:42)
[2021-05-21] MEDS ORDERED: methaDONE HCL 10 MG TABLET ONE (03:04)
[2021-05-21] MEDS ORDERED: methaDONE HCL 40 MG DISPERSABLE TABLET ONE (03:04)
[2021-05-21] MEDS: NICOTINE POLACRILEX 4 MG GUM BC PRN ×3 (05:58→16:49)
[2021-05-21] MEDS: cloNIDine HCL 0.1 MG TABLET PO SCH (10:03)
[2021-05-21] MEDS: PRENATAL VITAMINS W/ FOLIC ACID TABLET (FP) PO SCH (10:04)
[2021-05-21] MEDS: NICOTINE 7 MG/24 HOURS TOPICAL PATCH TD SCH (10:04)
[2021-05-21] MEDS: LIDOCAINE 5% TOPICAL PATCH TP SCH (10:04)
[2021-05-21] MEDS: ARIPiprazole 10 MG TABLET PO SCH (10:04)
[2021-05-21] MEDS: MAGNESIUM HYDROX 2400MG/30ML ORAL SUSPENSION 30 ML CUP PO PRN (10:05)
[2021-05-21] MEDS: TOLNAFTATE 1% POWDER 45 GM POW TP SCH ×2 (10:05→21:41)
[2021-05-21] MEDS: LIDOCAINE PATCH REMOVAL MC SCH (21:40)
[2021-05-21] MEDS: MELATONIN 5 MG TABLETS PO SCH (21:41)
[2021-05-21] MEDS: THIAMINE HCL 100 MG TABLET (FP) PO SCH (21:41)
[2021-05-22] MEDS ORDERED: methaDONE HCL 10 MG TABLET ONE (03:12)
[2021-05-22] MEDS ORDERED: methaDONE HCL 40 MG DISPERSABLE TABLET ONE (03:12)
[2021-05-22] MEDS: NICOTINE POLACRILEX 4 MG GUM BC PRN ×2 (06:14→09:49)
[2021-05-22] MEDS: NICOTINE 7 MG/24 HOURS TOPICAL PATCH TD SCH (09:48)
[2021-05-22] MEDS: LIDOCAINE 5% TOPICAL PATCH TP SCH (09:48)
[2021-05-22] MEDS: TOLNAFTATE 1% POWDER 45 GM POW TP SCH ×2 (09:49→22:24)
[2021-05-22] MEDS: PRENATAL VITAMINS W/ FOLIC ACID TABLET (FP) PO SCH (09:49)
[2021-05-22] MEDS: cloNIDine HCL 0.1 MG TABLET PO SCH (09:50)
[2021-05-22] MEDS: ARIPiprazole 10 MG TABLET PO SCH (09:50)
[2021-05-22] MEDS: MELATONIN 5 MG TABLETS PO SCH (22:24)
[2021-05-22] MEDS: THIAMINE HCL 100 MG TABLET (FP) PO SCH (22:25)
[2021-05-22] MEDS: LIDOCAINE PATCH REMOVAL MC SCH (22:25)
[2021-05-23] MEDS ORDERED: methaDONE HCL 10 MG TABLET ONE (03:11)
[2021-05-23] MEDS ORDERED: methaDONE HCL 40 MG DISPERSABLE TABLET ONE (03:11)
[2021-05-23] MEDS: NICOTINE POLACRILEX 4 MG GUM BC PRN ×3 (06:09→13:24)
[2021-05-23] MEDS: TOLNAFTATE 1% POWDER 45 GM POW TP SCH (10:10)
[2021-05-23] MEDS: ARIPiprazole 10 MG TABLET PO SCH (10:10)
[2021-05-23] MEDS: cloNIDine HCL 0.1 MG TABLET PO SCH (10:10)
[2021-05-23] MEDS: LIDOCAINE 5% TOPICAL PATCH TP SCH (10:10)
[2021-05-23] MEDS: PRENATAL VITAMINS W/ FOLIC ACID TABLET (FP) PO SCH (10:10)
[2021-05-23] MEDS: NICOTINE 7 MG/24 HOURS TOPICAL PATCH TD SCH (10:10)
[2021-05-23] MEDS: AMOXICILLIN 500 MG CAPSULE (FP) PO SCH ×2 (13:24→21:17)
[2021-05-23] MEDS: LIDOCAINE PATCH REMOVAL MC SCH (21:18)
[2021-05-23] MEDS: MELATONIN 5 MG TABLETS PO SCH (21:18)
[2021-05-23] MEDS: THIAMINE HCL 100 MG TABLET (FP) PO SCH (21:18)
[2021-05-23] MEDS: TOLNAFTATE 1% CREAM 15 GM TUBE TP SCH (21:18)
[2021-05-24] MEDS ORDERED: methaDONE HCL 40 MG DISPERSABLE TABLET ONE (02:57)
[2021-05-24] MEDS ORDERED: methaDONE HCL 10 MG TABLET ONE (02:58)
[2021-05-24] MEDS: AMOXICILLIN 500 MG CAPSULE (FP) PO SCH ×3 (05:52→21:15)
[2021-05-24] MEDS: NICOTINE POLACRILEX 4 MG GUM BC PRN ×5 (05:52→18:12)
[2021-05-24] MEDS: cloNIDine HCL 0.1 MG TABLET PO SCH (10:00)
[2021-05-24] MEDS: ARIPiprazole 10 MG TABLET PO SCH (10:00)
[2021-05-24] MEDS: TOLNAFTATE 1% CREAM 15 GM TUBE TP SCH ×2 (10:01→21:16)
[2021-05-24] MEDS: NICOTINE 7 MG/24 HOURS TOPICAL PATCH TD SCH (10:01)
[2021-05-24] MEDS: LIDOCAINE 5% TOPICAL PATCH TP SCH (10:01)
[2021-05-24] MEDS: PRENATAL VITAMINS W/ FOLIC ACID TABLET (FP) PO SCH (10:01)
[2021-05-24] MEDS: THIAMINE HCL 100 MG TABLET (FP) PO SCH (21:16)
[2021-05-24] MEDS: MELATONIN 5 MG TABLETS PO SCH (21:16)
[2021-05-24] MEDS: LIDOCAINE PATCH REMOVAL MC SCH (21:16)
[2021-05-25] MEDS ORDERED: methaDONE HCL 40 MG DISPERSABLE TABLET ONE (03:10)
[2021-05-25] MEDS ORDERED: methaDONE HCL 10 MG TABLET ONE (03:11)
[2021-05-25] MEDS: AMOXICILLIN 500 MG CAPSULE (FP) PO SCH ×3 (06:22→21:26)
[2021-05-25] MEDS: ARIPiprazole 10 MG TABLET PO SCH (10:17)
[2021-05-25] MEDS: cloNIDine HCL 0.1 MG TABLET PO SCH (10:18)
[2021-05-25] MEDS: LIDOCAINE 5% TOPICAL PATCH TP SCH (10:19)
[2021-05-25] MEDS: PRENATAL VITAMINS W/ FOLIC ACID TABLET (FP) PO SCH (10:19)
[2021-05-25] MEDS: NICOTINE 7 MG/24 HOURS TOPICAL PATCH TD SCH (10:19)
[2021-05-25] MEDS: TOLNAFTATE 1% CREAM 15 GM TUBE TP SCH ×2 (10:19→21:27)
[2021-05-25] MEDS: NICOTINE POLACRILEX 4 MG GUM BC PRN ×2 (10:20→21:27)
[2021-05-25] MEDS: MAGNESIUM HYDROX 2400MG/30ML ORAL SUSPENSION 30 ML CUP PO PRN (15:36)
[2021-05-25] MEDS: LIDOCAINE PATCH REMOVAL MC SCH (21:26)
[2021-05-25] MEDS: MELATONIN 5 MG TABLETS PO SCH (21:27)
[2021-05-25] MEDS: THIAMINE HCL 100 MG TABLET (FP) PO SCH (21:27)
[2021-05-26] MEDS ORDERED: PT OWN MED DRAWER 7, Y5N ONE (04:06)
[2021-05-26] MEDS ORDERED: methaDONE HCL 10 MG TABLET ONE (04:06)
[2021-05-26] MEDS ORDERED: methaDONE HCL 40 MG DISPERSABLE TABLET ONE (04:06)
[2021-05-26] MEDS: AMOXICILLIN 500 MG CAPSULE (FP) PO SCH ×3 (06:19→21:43)
[2021-05-26] MEDS: NICOTINE POLACRILEX 4 MG GUM BC PRN ×4 (06:21→14:14)
[2021-05-26] MEDS: PRENATAL VITAMINS W/ FOLIC ACID TABLET (FP) PO SCH ×2 (09:56→10:00)
[2021-05-26] MEDS: cloNIDine HCL 0.1 MG TABLET PO SCH (09:57)
[2021-05-26] MEDS: ARIPiprazole 10 MG TABLET PO SCH (09:57)
[2021-05-26] MEDS: NICOTINE 7 MG/24 HOURS TOPICAL PATCH TD SCH (09:57)
[2021-05-26] MEDS: TOLNAFTATE 1% CREAM 15 GM TUBE TP SCH ×2 (09:57→21:43)
[2021-05-26] MEDS: LIDOCAINE 5% TOPICAL PATCH TP SCH (09:57)
[2021-05-26] MEDS: MELATONIN 5 MG TABLETS PO SCH (21:43)
[2021-05-26] MEDS: THIAMINE HCL 100 MG TABLET (FP) PO SCH (21:43)
[2021-05-26] MEDS: LIDOCAINE PATCH REMOVAL MC SCH (21:43)
[2021-05-27] MEDS ORDERED: methaDONE HCL 10 MG TABLET ONE (03:20)
[2021-05-27] MEDS ORDERED: methaDONE HCL 40 MG DISPERSABLE TABLET ONE (03:20)
[2021-05-27] MEDS: AMOXICILLIN 500 MG CAPSULE (FP) PO SCH ×3 (06:13→22:44)
[2021-05-27] MEDS: TOLNAFTATE 1% CREAM 15 GM TUBE TP SCH ×2 (10:06→22:47)
[2021-05-27] MEDS: NICOTINE 7 MG/24 HOURS TOPICAL PATCH TD SCH (10:06)
[2021-05-27] MEDS: cloNIDine HCL 0.1 MG TABLET PO SCH (10:06)
[2021-05-27] MEDS: LIDOCAINE 5% TOPICAL PATCH TP SCH (10:06)
[2021-05-27] MEDS: PRENATAL VITAMINS W/ FOLIC ACID TABLET (FP) PO SCH (10:06)
[2021-05-27] MEDS: ARIPiprazole 10 MG TABLET PO SCH (10:06)
[2021-05-27] MEDS: NICOTINE POLACRILEX 4 MG GUM BC PRN ×2 (10:06→14:20)
[2021-05-27] MEDS: MAG HYDROX/AL HYDROX/SIMETH 30 ML UNIT-DOSE CUP PO PRN (10:08)
[2021-05-27] MEDS: LIDOCAINE PATCH REMOVAL MC SCH (22:47)
[2021-05-27] MEDS: THIAMINE HCL 100 MG TABLET (FP) PO SCH (22:47)
[2021-05-27] MEDS: MELATONIN 5 MG TABLETS PO SCH (22:47)
[2021-05-28] MEDS ORDERED: methaDONE HCL 40 MG DISPERSABLE TABLET ONE (03:08)
[2021-05-28] MEDS ORDERED: methaDONE HCL 10 MG TABLET ONE (03:09)
[2021-05-28] MEDS: AMOXICILLIN 500 MG CAPSULE (FP) PO SCH ×3 (05:53→21:56)
[2021-05-28] MEDS: NICOTINE POLACRILEX 4 MG GUM BC PRN ×4 (05:56→18:52)
[2021-05-28] MEDS: ARIPiprazole 10 MG TABLET PO SCH (09:48)
[2021-05-28] MEDS: cloNIDine HCL 0.1 MG TABLET PO SCH (09:48)
[2021-05-28] MEDS: LIDOCAINE 5% TOPICAL PATCH TP SCH (09:48)
[2021-05-28] MEDS: NICOTINE 7 MG/24 HOURS TOPICAL PATCH TD SCH (09:49)
[2021-05-28] MEDS: PRENATAL VITAMINS W/ FOLIC ACID TABLET (FP) PO SCH (09:49)
[2021-05-28] MEDS: TOLNAFTATE 1% CREAM 15 GM TUBE TP SCH ×2 (09:49→21:56)
[2021-05-28] MEDS: MAG HYDROX/AL HYDROX/SIMETH 30 ML UNIT-DOSE CUP PO PRN (09:50)
[2021-05-28] MEDS: THIAMINE HCL 100 MG TABLET (FP) PO SCH (21:56)
[2021-05-28] MEDS: MELATONIN 5 MG TABLETS PO SCH (21:56)
[2021-05-28] MEDS: LIDOCAINE PATCH REMOVAL MC SCH (21:56)
[2021-05-29] MEDS ORDERED: methaDONE HCL 10 MG TABLET ONE (02:38)
[2021-05-29] MEDS ORDERED: methaDONE HCL 40 MG DISPERSABLE TABLET ONE (02:38)
[2021-05-29] MEDS: AMOXICILLIN 500 MG CAPSULE (FP) PO SCH ×3 (06:01→21:26)
[2021-05-29] MEDS: NICOTINE POLACRILEX 4 MG GUM BC PRN ×3 (06:02→21:28)
[2021-05-29] MEDS: cloNIDine HCL 0.1 MG TABLET PO SCH (07:32)
[2021-05-29] MEDS: NICOTINE 7 MG/24 HOURS TOPICAL PATCH TD SCH (10:03)
[2021-05-29] MEDS: ARIPiprazole 10 MG TABLET PO SCH (10:03)
[2021-05-29] MEDS: LIDOCAINE 5% TOPICAL PATCH TP SCH (10:03)
[2021-05-29] MEDS: TOLNAFTATE 1% CREAM 15 GM TUBE TP SCH ×2 (10:03→21:27)
[2021-05-29] MEDS: PRENATAL VITAMINS W/ FOLIC ACID TABLET (FP) PO SCH (10:03)
[2021-05-29] MEDS: LIDOCAINE PATCH REMOVAL MC SCH (21:26)
[2021-05-29] MEDS: MELATONIN 5 MG TABLETS PO SCH (21:27)
[2021-05-29] MEDS: THIAMINE HCL 100 MG TABLET (FP) PO SCH (21:27)
[2021-05-30] MEDS ORDERED: methaDONE HCL 10 MG TABLET ONE (03:23)
[2021-05-30] MEDS ORDERED: methaDONE HCL 40 MG DISPERSABLE TABLET ONE (03:23)
[2021-05-30] MEDS: AMOXICILLIN 500 MG CAPSULE (FP) PO SCH (06:12)
[2021-05-30] MEDS: cloNIDine HCL 0.1 MG TABLET PO SCH (06:12)
[2021-05-30] MEDS: ARIPiprazole 10 MG TABLET PO SCH (10:11)
[2021-05-30] MEDS: PRENATAL VITAMINS W/ FOLIC ACID TABLET (FP) PO SCH (10:11)
[2021-05-30] MEDS: TOLNAFTATE 1% CREAM 15 GM TUBE TP SCH ×2 (10:12→21:49)
[2021-05-30] MEDS: NICOTINE POLACRILEX 4 MG GUM BC PRN (10:12)
[2021-05-30] MEDS: LIDOCAINE 5% TOPICAL PATCH TP SCH (10:12)
[2021-05-30] MEDS: NICOTINE 7 MG/24 HOURS TOPICAL PATCH TD SCH (10:12)
[2021-05-30] MEDS: THIAMINE HCL 100 MG TABLET (FP) PO SCH (21:49)
[2021-05-30] MEDS: MELATONIN 5 MG TABLETS PO SCH (21:49)
[2021-05-30] MEDS: LIDOCAINE PATCH REMOVAL MC SCH (21:51)
[2021-05-31] MEDS ORDERED: methaDONE HCL 10 MG TABLET ONE (03:18)
[2021-05-31] MEDS ORDERED: methaDONE HCL 40 MG DISPERSABLE TABLET ONE (03:18)
[2021-05-31] MEDS: MAG HYDROX/AL HYDROX/SIMETH 30 ML UNIT-DOSE CUP PO PRN (06:22)
[2021-05-31] MEDS: cloNIDine HCL 0.1 MG TABLET PO SCH (06:23)
[2021-05-31] MEDS: ARIPiprazole 10 MG TABLET PO SCH (10:07)
[2021-05-31] MEDS: TOLNAFTATE 1% CREAM 15 GM TUBE TP SCH ×2 (10:07→21:32)
[2021-05-31] MEDS: LIDOCAINE 5% TOPICAL PATCH TP SCH (10:07)
[2021-05-31] MEDS: NICOTINE 7 MG/24 HOURS TOPICAL PATCH TD SCH (10:07)
[2021-05-31] MEDS: PRENATAL VITAMINS W/ FOLIC ACID TABLET (FP) PO SCH (10:07)
[2021-05-31] MEDS: NICOTINE POLACRILEX 4 MG GUM BC PRN (10:09)
[2021-05-31] MEDS: LIDOCAINE PATCH REMOVAL MC SCH (21:32)
[2021-05-31] MEDS: MELATONIN 5 MG TABLETS PO SCH (21:32)
[2021-05-31] MEDS: THIAMINE HCL 100 MG TABLET (FP) PO SCH (21:32)
[2021-06-01] MEDS ORDERED: methaDONE HCL 10 MG TABLET ONE (03:16)
[2021-06-01] MEDS ORDERED: methaDONE HCL 40 MG DISPERSABLE TABLET ONE (03:16)
[2021-06-01] MEDS: NICOTINE POLACRILEX 4 MG GUM BC PRN ×3 (06:18→19:01)
[2021-06-01] MEDS: cloNIDine HCL 0.1 MG TABLET PO SCH (07:25)
[2021-06-01] MEDS: TOLNAFTATE 1% CREAM 15 GM TUBE TP SCH ×2 (09:56→21:50)
[2021-06-01] MEDS: PRENATAL VITAMINS W/ FOLIC ACID TABLET (FP) PO SCH (09:56)
[2021-06-01] MEDS: ARIPiprazole 10 MG TABLET PO SCH (09:56)
[2021-06-01] MEDS: NICOTINE 7 MG/24 HOURS TOPICAL PATCH TD SCH (09:56)
[2021-06-01] MEDS: LIDOCAINE 5% TOPICAL PATCH TP SCH (09:56)
[2021-06-01] MEDS: LIDOCAINE PATCH REMOVAL MC SCH (21:50)
[2021-06-01] MEDS: THIAMINE HCL 100 MG TABLET (FP) PO SCH (21:50)
[2021-06-01] MEDS: MELATONIN 5 MG TABLETS PO SCH (21:50)
[2021-06-02] MEDS ORDERED: methaDONE HCL 10 MG TABLET ONE (03:41)
[2021-06-02] MEDS ORDERED: methaDONE HCL 40 MG DISPERSABLE TABLET ONE (03:41)
[2021-06-02] MEDS: NICOTINE POLACRILEX 4 MG GUM BC PRN ×3 (06:03→19:28)
[2021-06-02] MEDS: cloNIDine HCL 0.1 MG TABLET PO SCH (06:03)
[2021-06-02] MEDS: ARIPiprazole 10 MG TABLET PO SCH (09:49)
[2021-06-02] MEDS: MAG HYDROX/AL HYDROX/SIMETH 30 ML UNIT-DOSE CUP PO PRN ×2 (09:51→21:26)
[2021-06-02] MEDS: LIDOCAINE 5% TOPICAL PATCH TP SCH (10:22)
[2021-06-02] MEDS: TOLNAFTATE 1% CREAM 15 GM TUBE TP SCH ×2 (10:22→21:26)
[2021-06-02] MEDS: NICOTINE 7 MG/24 HOURS TOPICAL PATCH TD SCH (10:22)
[2021-06-02] MEDS: PRENATAL VITAMINS W/ FOLIC ACID TABLET (FP) PO SCH (10:22)
[2021-06-02] MEDS: THIAMINE HCL 100 MG TABLET (FP) PO SCH (21:27)
[2021-06-02] MEDS: LIDOCAINE PATCH REMOVAL MC SCH (21:27)
[2021-06-02] MEDS: MELATONIN 5 MG TABLETS PO SCH (21:27)
[2021-06-03] MEDS ORDERED: methaDONE HCL 10 MG TABLET ONE (03:16)
[2021-06-03] MEDS ORDERED: methaDONE HCL 40 MG DISPERSABLE TABLET ONE (03:16)
[2021-06-03] MEDS: cloNIDine HCL 0.1 MG TABLET PO SCH (06:39)
[2021-06-03] MEDS: NICOTINE POLACRILEX 4 MG GUM BC PRN (06:40)
[2021-06-03 07:17] VITALS: BP 165/88; PULSE 95; TEMP 97.9
== END 2021-06-03 08:40 | disposition home or self-care (01) | DRG 772 ==
LOC: YASAS 12:18 → Y3W 16:26
PROVIDERS: ADMIT Allergy & Immunology; ATTEND Allergy & Immunology
PROC: HZ42ZZZ Group Counseling for Substance Abuse Treatment, Cognitive-Behavioral (ICD-10-PCS; principal; 2021-05-11)
DX: F11.20 Opioid dependence, uncomplicated (principal); F14.20 Cocaine dependence, uncomplicated; F17.210 Nicotine dependence, cigarettes, uncomplicated; F25.9 Schizoaffective disorder, unspecified; F19.282 Other psychoactive substance dependence with psychoactive substance-induced sleep disorder; I10 Essential (primary) hypertension; J02.9 Acute pharyngitis, unspecified; R73.9 Hyperglycemia, unspecified; G62.9 Polyneuropathy, unspecified; D51.9 Vitamin B12 deficiency anemia, unspecified; M19.90 Unspecified osteoarthritis, unspecified site; E66.01 Morbid (severe) obesity due to excess calories; Z68.42 Body mass index [BMI] 45.0-49.9, adult; R01.1 Cardiac murmur, unspecified; B35.6 Tinea cruris; R60.0 Localized edema; Z89.412 Acquired absence of left great toe; M77.30 Calcaneal spur, unspecified foot; Z59.01 Sheltered homelessness
CPT/HCPCS: 36415; 80053; 81003; 82962; 85027; 86780; 86803; 87070; C9803; J0735; U0003; U0005

== ENCOUNTER 2022-06-13 12:42 | Inpatient (IN) | payer OTHER ==
[2022-06-13] MEDS ORDERED: IBUPROFEN 400 MG TABLET (FP) PO PRN (15:20)
[2022-06-13] MEDS ORDERED: MAGNESIUM HYDROX 2400MG/30ML ORAL SUSPENSION 30 ML CUP PO PRN (15:20)
[2022-06-13] MEDS ORDERED: P-EPHED 60MG/TRIPROLIDI 2.5MG TABLET PO PRN (15:20)
[2022-06-13] MEDS ORDERED: LOPERAMIDE HCL 2 MG CAPSULE PO PRN (15:20)
[2022-06-13] MEDS ORDERED: MAGNESIUM CITRATE 300 ML BOTTLE PO PRN (15:20)
[2022-06-13] MEDS ORDERED: guaiFENesin 200 MG/10 ML 10 ML UNIT-DOSE CUPS PO PRN (15:20)
[2022-06-13] MEDS ORDERED: ACETAMINOPHEN 325 MG TABLET (FP) PO PRN (15:20)
[2022-06-13] MEDS ORDERED: TUBERCULIN PPD 5 TU/0.1ML VIAL ID ONE ×2 (18:56→22:04)
[2022-06-13] MEDS: NICOTINE 7 MG/24 HOURS TOPICAL PATCH TD SCH (20:07)
[2022-06-13] MEDS: hydrOXYzine PAMOATE 25 MG CAPSULE (FP) PO SCH ×2 (20:07→21:33)
[2022-06-13] MEDS: PRENATAL VITAMINS W/ FOLIC ACID TABLET (FP) PO SCH (20:09)
[2022-06-13] MEDS: MELATONIN 5 MG TABLETS PO SCH (21:33)
[2022-06-13] MEDS: THIAMINE HCL 100 MG TABLET (FP) PO SCH (21:33)
[2022-06-14] MEDS: hydrOXYzine PAMOATE 25 MG CAPSULE (FP) PO SCH ×2 (06:20→09:45)
[2022-06-14] MEDS ORDERED: methaDONE HCL 10 MG TABLET PO SCH ×2 (07:36→07:45)
[2022-06-14] MEDS: NICOTINE 7 MG/24 HOURS TOPICAL PATCH TD SCH (09:45)
[2022-06-14] MEDS: PRENATAL VITAMINS W/ FOLIC ACID TABLET (FP) PO SCH (09:45)
[2022-06-14] MEDS ORDERED: FLU VACC QS2022-23(6MOS UP)/PF 60 MCG/0.5 ML SYRINGE IM ONE (12:00)
[2022-06-14] MEDS ORDERED: NICOTINE 7 MG/24 HOURS TOPICAL PATCH TD PRN (12:48)
[2022-06-14 13:28] LABS: EPI CELLS 24 /uL (0-25.1); HYALINE CASTS 1 /uL (0-3.1); URINE APPEARANCE CLEAR; URINE BILIRUBIN NEGATIVE (NEGATIVE); URINE COLOR YELLOW; URINE GLUCOSE (UA) NEGATIVE (NEGATIVE); URINE KETONE NEGATIVE (NEGATIVE); URINE LEUK ESTERASE 1+ (NEGATIVE); URINE NITRITE POSITIVE (NEGATIVE); URINE PROTEIN NEGATIVE (NEGATIVE); URINE RBC 7 /uL (0-23.9); URINE WBC 14 /uL (0-25.8)
[2022-06-14 13:49] LABS: URINE BACTERIA 399 /uL (0-1359)
[2022-06-14 16:34] LABS: CALCIUM 8.1 mg/dL (8.5-10.1)
[2022-06-14 16:35] LABS: ALBUMIN 3.2 g/dl (3.4-5.0); BLOOD UREA NITROGEN 13.6 mg/dL (7-18)
[2022-06-14 16:38] LABS: CREATININE 0.7 mg/dL (0.55-1.3)
[2022-06-14 16:41] LABS: BILIRUBIN,TOTAL 0.5 mg/dL (0.2-1); TOT PROT 6.5 g/dl (6.4-8.2)
[2022-06-14 16:50] LABS: HEMATOCRIT 32.9 % (35.4-49); HEMOGLOBIN 11.2 GM/dL (11.7-16.9); MCHC 34.1 g/dl (32.0-35.9); MEAN CELL VOLUME 117.2 fl (80-96); MEAN PLT VOLUME 7.8 fl (7.5-11.1); PLATELET COUNT 344 10^3/uL (134-434); RDW 17.5 % (11.9-15.9); WHITE BLOOD COUNT 6.7 K/mm3 (4.0-10.0)
[2022-06-14 16:59] LABS: SYPHILIS W/ RPR CONF NON-REACTIVE (NONREACTIVE)
[2022-06-14 17:29] LABS: HIV INTERPRETATION NEGATIVE (NEGATIVE)
[2022-06-14] MEDS: THIAMINE HCL 100 MG TABLET (FP) PO SCH (21:33)
[2022-06-14] MEDS: MELATONIN 5 MG TABLETS PO SCH (21:33)
[2022-06-15] MEDS: ARIPiprazole 10 MG TABLET PO SCH (09:58)
[2022-06-15] MEDS: PRENATAL VITAMINS W/ FOLIC ACID TABLET (FP) PO SCH (09:58)
[2022-06-15] MEDS: NICOTINE POLACRILEX 2 MG GUM BUC PRN ×2 (09:59→21:23)
[2022-06-15] MEDS: MELATONIN 5 MG TABLETS PO SCH (21:23)
[2022-06-15] MEDS: THIAMINE HCL 100 MG TABLET (FP) PO SCH (21:23)
[2022-06-16] MEDS: NICOTINE POLACRILEX 2 MG GUM BUC PRN ×2 (06:41→09:43)
[2022-06-16] MEDS: PRENATAL VITAMINS W/ FOLIC ACID TABLET (FP) PO SCH (09:42)
[2022-06-16] MEDS: ARIPiprazole 10 MG TABLET PO SCH (09:43)
[2022-06-16] MEDS: CEPHALEXIN MONOHYDRATE 500 MG CAPSULE (UD) PO SCH (18:12)
[2022-06-16] MEDS: THIAMINE HCL 100 MG TABLET (FP) PO SCH (21:36)
[2022-06-16] MEDS: hydrOXYzine PAMOATE 25 MG CAPSULE (FP) PO PRN (21:36)
[2022-06-16] MEDS: MELATONIN 5 MG TABLETS PO SCH (21:36)
[2022-06-17] MEDS: CEPHALEXIN MONOHYDRATE 500 MG CAPSULE (UD) PO SCH ×5 (00:18→23:48)
[2022-06-17] MEDS: NICOTINE POLACRILEX 2 MG GUM BUC PRN ×2 (06:25→09:26)
[2022-06-17] MEDS ORDERED: ARIPiprazole 5 MG TABLET ONE (08:19)
[2022-06-17] MEDS: ARIPiprazole 10 MG TABLET PO SCH (09:24)
[2022-06-17] MEDS: PRENATAL VITAMINS W/ FOLIC ACID TABLET (FP) PO SCH (09:25)
[2022-06-17] MEDS: hydrOXYzine PAMOATE 25 MG CAPSULE (FP) PO PRN (21:24)
[2022-06-17] MEDS: THIAMINE HCL 100 MG TABLET (FP) PO SCH (21:25)
[2022-06-17] MEDS: MELATONIN 5 MG TABLETS PO SCH (21:25)
[2022-06-18] MEDS: CEPHALEXIN MONOHYDRATE 500 MG CAPSULE (UD) PO SCH ×4 (06:18→17:41)
[2022-06-18] MEDS: NICOTINE POLACRILEX 2 MG GUM BUC PRN ×3 (06:19→13:14)
[2022-06-18] MEDS ORDERED: ARIPiprazole 5 MG TABLET ONE (08:09)
[2022-06-18] MEDS: ARIPiprazole 10 MG TABLET PO SCH (09:29)
[2022-06-18] MEDS: PRENATAL VITAMINS W/ FOLIC ACID TABLET (FP) PO SCH (09:30)
[2022-06-18] MEDS: NICOTINE 10 MG CARTRIDGE (INHALER) IH PRN (13:15)
[2022-06-18] MEDS: SULFAMETHOXAZOLE/TRIMETHOPRIM 800MG/160MG D.S. TABLET PO SCH (21:09)
[2022-06-18] MEDS: hydrOXYzine PAMOATE 25 MG CAPSULE (FP) PO PRN (21:09)
[2022-06-18] MEDS: MELATONIN 5 MG TABLETS PO SCH (21:09)
[2022-06-18] MEDS: THIAMINE HCL 100 MG TABLET (FP) PO SCH (21:09)
[2022-06-19] MEDS: CEPHALEXIN MONOHYDRATE 500 MG CAPSULE (UD) PO SCH (06:34)
[2022-06-19] MEDS ORDERED: ARIPiprazole 5 MG TABLET ONE (08:31)
[2022-06-19] MEDS: NICOTINE 10 MG CARTRIDGE (INHALER) IH PRN (09:32)
[2022-06-19] MEDS: SULFAMETHOXAZOLE/TRIMETHOPRIM 800MG/160MG D.S. TABLET PO SCH ×2 (09:33→21:34)
[2022-06-19] MEDS: ARIPiprazole 10 MG TABLET PO SCH (09:33)
[2022-06-19] MEDS: PRENATAL VITAMINS W/ FOLIC ACID TABLET (FP) PO SCH (09:33)
[2022-06-19] MEDS: NICOTINE POLACRILEX 2 MG GUM BUC PRN ×2 (09:34→13:18)
[2022-06-19] MEDS: BACITRACIN 15 GM TUBE TOPICAL OINTMENT TP SCH (13:18)
[2022-06-19] MEDS: MELATONIN 5 MG TABLETS PO SCH (21:33)
[2022-06-19] MEDS: THIAMINE HCL 100 MG TABLET (FP) PO SCH (21:33)
[2022-06-19] MEDS: hydrOXYzine PAMOATE 25 MG CAPSULE (FP) PO PRN (21:34)
[2022-06-20] MEDS ORDERED: ARIPiprazole 5 MG TABLET ONE (08:48)
[2022-06-20] MEDS: NICOTINE POLACRILEX 2 MG GUM BUC PRN ×2 (10:00→18:57)
[2022-06-20] MEDS: NICOTINE 10 MG CARTRIDGE (INHALER) IH PRN ×2 (10:00→22:01)
[2022-06-20] MEDS: SULFAMETHOXAZOLE/TRIMETHOPRIM 800MG/160MG D.S. TABLET PO SCH ×2 (10:01→22:00)
[2022-06-20] MEDS: ARIPiprazole 10 MG TABLET PO SCH (10:01)
[2022-06-20] MEDS: PRENATAL VITAMINS W/ FOLIC ACID TABLET (FP) PO SCH (10:01)
[2022-06-20] MEDS: BACITRACIN 15 GM TUBE TOPICAL OINTMENT TP SCH (10:02)
[2022-06-20] MEDS: THIAMINE HCL 100 MG TABLET (FP) PO SCH (22:00)
[2022-06-20] MEDS: hydrOXYzine PAMOATE 25 MG CAPSULE (FP) PO PRN (22:00)
[2022-06-20] MEDS: MELATONIN 5 MG TABLETS PO SCH (22:00)
[2022-06-21] MEDS: NICOTINE POLACRILEX 2 MG GUM BUC PRN ×3 (06:14→21:09)
[2022-06-21] MEDS ORDERED: ARIPiprazole 5 MG TABLET ONE (08:38)
[2022-06-21] MEDS: NICOTINE 10 MG CARTRIDGE (INHALER) IH PRN ×2 (10:02→21:08)
[2022-06-21] MEDS: SULFAMETHOXAZOLE/TRIMETHOPRIM 800MG/160MG D.S. TABLET PO SCH ×2 (10:03→21:09)
[2022-06-21] MEDS: PRENATAL VITAMINS W/ FOLIC ACID TABLET (FP) PO SCH (10:03)
[2022-06-21] MEDS: ARIPiprazole 10 MG TABLET PO SCH (10:03)
[2022-06-21] MEDS: BACITRACIN 15 GM TUBE TOPICAL OINTMENT TP SCH ×3 (10:04→21:56)
[2022-06-21] MEDS: THIAMINE HCL 100 MG TABLET (FP) PO SCH (21:08)
[2022-06-21] MEDS: MELATONIN 5 MG TABLETS PO SCH (21:08)
[2022-06-21] MEDS: hydrOXYzine PAMOATE 25 MG CAPSULE (FP) PO PRN (21:09)
[2022-06-22] MEDS: NICOTINE POLACRILEX 2 MG GUM BUC PRN (06:55)
[2022-06-22] MEDS: NICOTINE 10 MG CARTRIDGE (INHALER) IH PRN ×2 (06:55→21:11)
[2022-06-22] MEDS ORDERED: ARIPiprazole 5 MG TABLET ONE (08:46)
[2022-06-22] MEDS: ARIPiprazole 10 MG TABLET PO SCH (09:46)
[2022-06-22] MEDS: BACITRACIN 15 GM TUBE TOPICAL OINTMENT TP SCH ×2 (09:46→21:11)
[2022-06-22] MEDS: PRENATAL VITAMINS W/ FOLIC ACID TABLET (FP) PO SCH (09:47)
[2022-06-22] MEDS: SULFAMETHOXAZOLE/TRIMETHOPRIM 800MG/160MG D.S. TABLET PO SCH ×2 (09:47→21:10)
[2022-06-22] MEDS: MELATONIN 5 MG TABLETS PO SCH (21:10)
[2022-06-22] MEDS: hydrOXYzine PAMOATE 25 MG CAPSULE (FP) PO PRN (21:10)
[2022-06-22] MEDS: THIAMINE HCL 100 MG TABLET (FP) PO SCH (21:10)
[2022-06-23] MEDS: NICOTINE POLACRILEX 2 MG GUM BUC PRN ×3 (00:33→09:48)
[2022-06-23] MEDS: MAG HYDROX/AL HYDROX/SIMETH 30 ML UNIT-DOSE CUP PO PRN (00:33)
[2022-06-23] MEDS: NICOTINE 10 MG CARTRIDGE (INHALER) IH PRN ×3 (00:33→21:24)
[2022-06-23] MEDS ORDERED: ARIPiprazole 5 MG TABLET ONE (08:43)
[2022-06-23] MEDS: SULFAMETHOXAZOLE/TRIMETHOPRIM 800MG/160MG D.S. TABLET PO SCH ×2 (09:47→21:25)
[2022-06-23] MEDS: PRENATAL VITAMINS W/ FOLIC ACID TABLET (FP) PO SCH (09:47)
[2022-06-23] MEDS: BACITRACIN 15 GM TUBE TOPICAL OINTMENT TP SCH ×2 (09:47→21:26)
[2022-06-23] MEDS: ARIPiprazole 10 MG TABLET PO SCH (09:47)
[2022-06-23] MEDS: THIAMINE HCL 100 MG TABLET (FP) PO SCH (21:24)
[2022-06-23] MEDS: MELATONIN 5 MG TABLETS PO SCH (21:24)
[2022-06-23] MEDS: hydrOXYzine PAMOATE 25 MG CAPSULE (FP) PO PRN (21:25)
[2022-06-24] MEDS: SULFAMETHOXAZOLE/TRIMETHOPRIM 800MG/160MG D.S. TABLET PO SCH ×2 (10:01→21:36)
[2022-06-24] MEDS: PRENATAL VITAMINS W/ FOLIC ACID TABLET (FP) PO SCH (10:01)
[2022-06-24] MEDS: ARIPiprazole 10 MG TABLET PO SCH (10:01)
[2022-06-24] MEDS: BACITRACIN 15 GM TUBE TOPICAL OINTMENT TP SCH ×2 (10:01→21:37)
[2022-06-24] MEDS: NICOTINE POLACRILEX 2 MG GUM BUC PRN ×2 (10:02→15:43)
[2022-06-24] MEDS: NICOTINE 10 MG CARTRIDGE (INHALER) IH PRN ×2 (15:43→21:38)
[2022-06-24] MEDS: MELATONIN 5 MG TABLETS PO SCH (21:36)
[2022-06-24] MEDS: hydrOXYzine PAMOATE 25 MG CAPSULE (FP) PO PRN (21:36)
[2022-06-24] MEDS: THIAMINE HCL 100 MG TABLET (FP) PO SCH (21:36)
[2022-06-25] MEDS: NICOTINE 10 MG CARTRIDGE (INHALER) IH PRN ×3 (06:05→18:56)
[2022-06-25] MEDS: NICOTINE POLACRILEX 2 MG GUM BUC PRN ×4 (06:06→21:14)
[2022-06-25] MEDS: PRENATAL VITAMINS W/ FOLIC ACID TABLET (FP) PO SCH (10:10)
[2022-06-25] MEDS: SULFAMETHOXAZOLE/TRIMETHOPRIM 800MG/160MG D.S. TABLET PO SCH ×2 (10:10→21:13)
[2022-06-25] MEDS: ARIPiprazole 10 MG TABLET PO SCH (10:11)
[2022-06-25] MEDS: BACITRACIN 15 GM TUBE TOPICAL OINTMENT TP SCH ×2 (10:11→21:14)
[2022-06-25] MEDS: THIAMINE HCL 100 MG TABLET (FP) PO SCH (21:13)
[2022-06-25] MEDS: hydrOXYzine PAMOATE 25 MG CAPSULE (FP) PO PRN (21:13)
[2022-06-25] MEDS: MELATONIN 5 MG TABLETS PO SCH (21:13)
[2022-06-26] MEDS: NICOTINE POLACRILEX 2 MG GUM BUC PRN ×2 (06:46→09:24)
[2022-06-26] MEDS: NICOTINE 10 MG CARTRIDGE (INHALER) IH PRN ×2 (06:46→21:34)
[2022-06-26] MEDS ORDERED: ARIPiprazole 5 MG TABLET ONE (08:25)
[2022-06-26] MEDS: SULFAMETHOXAZOLE/TRIMETHOPRIM 800MG/160MG D.S. TABLET PO SCH ×2 (09:23→21:35)
[2022-06-26] MEDS: ARIPiprazole 10 MG TABLET PO SCH (09:23)
[2022-06-26] MEDS: BACITRACIN 15 GM TUBE TOPICAL OINTMENT TP SCH (09:23)
[2022-06-26] MEDS: PRENATAL VITAMINS W/ FOLIC ACID TABLET (FP) PO SCH (09:23)
[2022-06-26] MEDS: hydrOXYzine PAMOATE 25 MG CAPSULE (FP) PO PRN (21:35)
[2022-06-26] MEDS: THIAMINE HCL 100 MG TABLET (FP) PO SCH (21:35)
[2022-06-26] MEDS: MELATONIN 5 MG TABLETS PO SCH (21:35)
[2022-06-27] MEDS: NICOTINE POLACRILEX 2 MG GUM BUC PRN ×2 (06:36→10:24)
[2022-06-27] MEDS: NICOTINE 10 MG CARTRIDGE (INHALER) IH PRN ×2 (06:36→10:24)
[2022-06-27] MEDS: SULFAMETHOXAZOLE/TRIMETHOPRIM 800MG/160MG D.S. TABLET PO SCH ×2 (10:23→21:25)
[2022-06-27] MEDS: PRENATAL VITAMINS W/ FOLIC ACID TABLET (FP) PO SCH (10:24)
[2022-06-27] MEDS: ARIPiprazole 10 MG TABLET PO SCH (10:24)
[2022-06-27] MEDS: MELATONIN 5 MG TABLETS PO SCH (21:25)
[2022-06-27] MEDS: hydrOXYzine PAMOATE 25 MG CAPSULE (FP) PO PRN (21:25)
[2022-06-27] MEDS: THIAMINE HCL 100 MG TABLET (FP) PO SCH (21:25)
[2022-06-28] MEDS: NICOTINE 10 MG CARTRIDGE (INHALER) IH PRN ×2 (06:40→21:35)
[2022-06-28] MEDS: NICOTINE POLACRILEX 2 MG GUM BUC PRN ×2 (06:40→10:02)
[2022-06-28] MEDS ORDERED: ARIPiprazole 5 MG TABLET ONE (08:56)
[2022-06-28] MEDS: ARIPiprazole 10 MG TABLET PO SCH (10:01)
[2022-06-28] MEDS: PRENATAL VITAMINS W/ FOLIC ACID TABLET (FP) PO SCH (10:01)
[2022-06-28] MEDS: THIAMINE HCL 100 MG TABLET (FP) PO SCH (21:35)
[2022-06-28] MEDS: MELATONIN 5 MG TABLETS PO SCH (21:35)
[2022-06-28] MEDS: hydrOXYzine PAMOATE 25 MG CAPSULE (FP) PO PRN (21:36)
[2022-06-29] MEDS: ARIPiprazole 10 MG TABLET PO SCH (10:10)
[2022-06-29] MEDS: NICOTINE POLACRILEX 2 MG GUM BUC PRN ×2 (10:10→21:26)
[2022-06-29] MEDS: PRENATAL VITAMINS W/ FOLIC ACID TABLET (FP) PO SCH (10:10)
[2022-06-29] MEDS: NICOTINE 10 MG CARTRIDGE (INHALER) IH PRN ×2 (10:11→21:26)
[2022-06-29] MEDS: THIAMINE HCL 100 MG TABLET (FP) PO SCH (21:25)
[2022-06-29] MEDS: hydrOXYzine PAMOATE 25 MG CAPSULE (FP) PO PRN (21:25)
[2022-06-29] MEDS: MELATONIN 5 MG TABLETS PO SCH (21:25)
[2022-06-30] MEDS: NICOTINE 10 MG CARTRIDGE (INHALER) IH PRN ×3 (06:05→21:47)
[2022-06-30] MEDS: NICOTINE POLACRILEX 2 MG GUM BUC PRN ×2 (06:07→17:37)
[2022-06-30] MEDS ORDERED: ARIPiprazole 5 MG TABLET ONE (09:36)
[2022-06-30] MEDS: PRENATAL VITAMINS W/ FOLIC ACID TABLET (FP) PO SCH (10:09)
[2022-06-30] MEDS: ARIPiprazole 10 MG TABLET PO SCH (10:09)
[2022-06-30] MEDS: MELATONIN 5 MG TABLETS PO SCH (21:47)
[2022-06-30] MEDS: hydrOXYzine PAMOATE 25 MG CAPSULE (FP) PO PRN (21:47)
[2022-06-30] MEDS: THIAMINE HCL 100 MG TABLET (FP) PO SCH (21:47)
[2022-07-01] MEDS: NICOTINE POLACRILEX 2 MG GUM BUC PRN ×2 (06:26→21:35)
[2022-07-01] MEDS: NICOTINE 10 MG CARTRIDGE (INHALER) IH PRN ×2 (06:26→21:34)
[2022-07-01] MEDS ORDERED: ARIPiprazole 5 MG TABLET ONE (08:50)
[2022-07-01] MEDS: ARIPiprazole 10 MG TABLET PO SCH (09:59)
[2022-07-01] MEDS: MAG HYDROX/AL HYDROX/SIMETH 30 ML UNIT-DOSE CUP PO PRN (09:59)
[2022-07-01] MEDS: PRENATAL VITAMINS W/ FOLIC ACID TABLET (FP) PO SCH (09:59)
[2022-07-01] MEDS: THIAMINE HCL 100 MG TABLET (FP) PO SCH (21:34)
[2022-07-01] MEDS: MELATONIN 5 MG TABLETS PO SCH (21:34)
[2022-07-01] MEDS: hydrOXYzine PAMOATE 25 MG CAPSULE (FP) PO PRN (21:34)
[2022-07-02] MEDS: NICOTINE POLACRILEX 2 MG GUM BUC PRN ×3 (06:41→19:55)
[2022-07-02] MEDS: NICOTINE 10 MG CARTRIDGE (INHALER) IH PRN ×2 (06:41→19:53)
[2022-07-02] MEDS ORDERED: ARIPiprazole 5 MG TABLET ONE (08:21)
[2022-07-02] MEDS: PRENATAL VITAMINS W/ FOLIC ACID TABLET (FP) PO SCH (10:05)
[2022-07-02] MEDS: ARIPiprazole 10 MG TABLET PO SCH (10:05)
[2022-07-02] MEDS: hydrOXYzine PAMOATE 25 MG CAPSULE (FP) PO PRN (21:34)
[2022-07-02] MEDS: MELATONIN 5 MG TABLETS PO SCH (21:34)
[2022-07-02] MEDS: THIAMINE HCL 100 MG TABLET (FP) PO SCH (21:34)
[2022-07-03] MEDS: NICOTINE 10 MG CARTRIDGE (INHALER) IH PRN ×3 (06:52→21:50)
[2022-07-03] MEDS: NICOTINE POLACRILEX 2 MG GUM BUC PRN ×3 (06:52→19:13)
[2022-07-03] MEDS ORDERED: ARIPiprazole 5 MG TABLET ONE (08:48)
[2022-07-03] MEDS: ARIPiprazole 10 MG TABLET PO SCH (09:59)
[2022-07-03] MEDS: PRENATAL VITAMINS W/ FOLIC ACID TABLET (FP) PO SCH (09:59)
[2022-07-03] MEDS: hydrOXYzine PAMOATE 25 MG CAPSULE (FP) PO PRN (21:44)
[2022-07-03] MEDS: MELATONIN 5 MG TABLETS PO SCH (21:44)
[2022-07-03] MEDS: THIAMINE HCL 100 MG TABLET (FP) PO SCH (21:44)
[2022-07-04 06:43] VITALS: BP 127/78; PULSE 84; RESP 16; TEMP 97.1
[2022-07-04] MEDS: NICOTINE POLACRILEX 2 MG GUM BUC PRN (06:46)
[2022-07-04] MEDS: NICOTINE 10 MG CARTRIDGE (INHALER) IH PRN (06:46)
[2022-07-04] MEDS ORDERED: ARIPiprazole 5 MG TABLET ONE (08:43)
[2022-07-04] MEDS: PRENATAL VITAMINS W/ FOLIC ACID TABLET (FP) PO SCH (09:00)
[2022-07-04] MEDS: ARIPiprazole 10 MG TABLET PO SCH (09:00)
== END 2022-07-04 09:08 | disposition home or self-care (01) | DRG 772 ==
LOC: YASAS 12:42 → Y3E 18:37
PROVIDERS: ADMIT Allergy & Immunology; ATTEND Psychiatry & Neurology Pain Medicine
PROC: HZ42ZZZ Group Counseling for Substance Abuse Treatment, Cognitive-Behavioral (ICD-10-PCS; principal; 2022-06-13)
DX: F11.20 Opioid dependence, uncomplicated (principal); F14.20 Cocaine dependence, uncomplicated; F10.10 Alcohol abuse, uncomplicated; F17.210 Nicotine dependence, cigarettes, uncomplicated; F19.282 Other psychoactive substance dependence with psychoactive substance-induced sleep disorder; F19.24 Other psychoactive substance dependence with psychoactive substance-induced mood disorder; F25.9 Schizoaffective disorder, unspecified; I10 Essential (primary) hypertension; N39.0 Urinary tract infection, site not specified; B35.3 Tinea pedis; R60.0 Localized edema; L97.828 Non-pressure chronic ulcer of other part of left lower leg with other specified severity; L03.116 Cellulitis of left lower limb; E66.01 Morbid (severe) obesity due to excess calories; Z68.42 Body mass index [BMI] 45.0-49.9, adult; Z86.2 Personal history of diseases of the blood and blood-forming organs and certain disorders involving the immune mechanism; Z89.412 Acquired absence of left great toe; Z28.310 Unvaccinated for COVID-19; Z28.9 Immunization not carried out for unspecified reason
CPT/HCPCS: 36415; 80053; 81003; 85027; 86780; 86803; 87086; 87186; 87389; C9803-CS; G0008; Q2036; U0003; U0005

== ENCOUNTER 2023-09-19 15:06 | Inpatient (IN) | payer OTHER ==
[2023-09-19 15:46] VITALS: BMI 39.3
[2023-09-19] MEDS ORDERED: NALOXONE HCL (KLOXXADO) 8 MG SPRAY NS PRN (17:28)
[2023-09-19] MEDS ORDERED: BENZONATATE 200 MG CAPSULE PO PRN (17:28)
[2023-09-19] MEDS ORDERED: NALOXONE HCL 0.4 MG/ML VIAL IM PRN (17:28)
[2023-09-19] MEDS ORDERED: POLYETHYLENE GLYCOL (HEALTHYLAX) 3350 17 GM PACKET PO PRN (17:28)
[2023-09-19] MEDS ORDERED: MAG HYDROX/AL HYDROX/SIMETH 30 ML UNIT-DOSE CUP PO PRN (17:28)
[2023-09-19] MEDS ORDERED: LOPERAMIDE HCL 2 MG CAPSULE PO PRN (17:28)
[2023-09-19] MEDS ORDERED: MAGNESIUM HYDROX 2400MG/30ML ORAL SUSPENSION 30 ML CUP PO PRN (17:28)
[2023-09-19] MEDS ORDERED: guaiFENesin 600 MG TABLET.ER (FP) PO PRN (17:28)
[2023-09-19] MEDS ORDERED: hydrOXYzine PAMOATE 25 MG CAPSULE (FP) PO PRN (17:28)
[2023-09-19] MEDS: ACETAMINOPHEN 325 MG TABLET (FP) PO PRN (22:55)
[2023-09-19] MEDS: MELATONIN 5 MG TABLETS PO SCH (22:56)
[2023-09-19] MEDS: THIAMINE HCL 100 MG TABLET (FP) PO SCH (22:56)
[2023-09-20] MEDS ORDERED: TUBERCULIN PPD 5 TU/0.1ML VIAL ID ONE (09:44)
[2023-09-20] MEDS ORDERED: methaDONE HCL 10 MG TABLET PO ONE (09:48)
[2023-09-20] MEDS: PRENATAL VITAMINS W/ FOLIC ACID TABLET (FP) PO SCH (09:54)
[2023-09-20] MEDS: NICOTINE POLACRILEX 2 MG GUM BUC PRN (09:55)
[2023-09-20] MEDS: NICOTINE 14 MG/24 HOURS TOPICAL PATCH TD SCH (09:55)
[2023-09-20] MEDS: TUBERCULIN PPD 5 TU/0.1ML VIAL ID ONE (09:57)
[2023-09-20] MEDS ORDERED: NICOTINE 21 MG/24 HOURS TOPICAL PATCH TD SCH (10:00)
[2023-09-20 11:21] LABS: HEMATOCRIT 41.4 % (35.4-49); HEMOGLOBIN 13.5 GM/dL (11.7-16.9); MCHC 32.5 g/dl (32.0-35.9); MEAN PLT VOLUME 7.6 fl (7.5-11.1); PLATELET COUNT 462 10^3/uL (134-434); RBC 4.82 M/mm3 (4.00-5.60); RDW 13.7 % (11.9-15.9); WHITE BLOOD COUNT 7.9 K/mm3 (4.0-10.0)
[2023-09-20 11:34] LABS: CHLORIDE 110 mmol/L (98-107); POTASSIUM 4.2 mmol/L (3.5-5.1); SODIUM 140 mmol/L (136-145)
[2023-09-20 11:38] LABS: CALCIUM 8.6 mg/dL (8.5-10.1)
[2023-09-20 11:39] LABS: ALBUMIN 2.9 g/dl (3.4-5.0); ANION GAP 5 mmol/L (4-13); CO2 26 mmol/L (21-32)
[2023-09-20 11:42] LABS: CREATININE 1.1 mg/dL (0.55-1.3); SGOT/AST 15 U/L (15-37); SGPT/ALT 30 U/L (13-61)
[2023-09-20 11:43] LABS: GLUCOSE,RANDOM 112 mg/dL (74-106)
[2023-09-20 11:44] LABS: BILIRUBIN,TOTAL 0.4 mg/dL (0.2-1); TOT PROT 6.5 g/dl (6.4-8.2)
[2023-09-20 11:45] LABS: ALK PHOS 116 U/L (45-117)
[2023-09-20] MEDS: methaDONE HCL 10 MG TABLET (FOR DETOX USE ONLY) PO ONE (13:28)
[2023-09-20] MEDS: OLANZapine 2.5 MG TABLET PO PRN (15:04)
[2023-09-20 18:01] LABS: URINE APPEARANCE CLEAR; URINE BILIRUBIN NEGATIVE (NEGATIVE); URINE COLOR YELLOW; URINE GLUCOSE (UA) NEGATIVE (NEGATIVE); URINE KETONE NEGATIVE (NEGATIVE); URINE LEUK ESTERASE NEGATIVE (NEGATIVE); URINE NITRITE NEGATIVE (NEGATIVE); URINE PROTEIN NEGATIVE (NEGATIVE); URINE UROBILINOGEN 0.2 mg/dL (0.2-1.0)
[2023-09-20] MEDS: OLANZapine 5 MG TABLET PO SCH (21:52)
[2023-09-21] MEDS ORDERED: methaDONE HCL 10 MG TABLET PO SCH (06:00)
[2023-09-21] MEDS ORDERED: methaDONE HCL 10 MG TABLET (FOR DETOX USE ONLY) PO SCH (06:00)
[2023-09-21 08:03] VITALS: RESP 18
[2023-09-21] MEDS: PNEUMOC 20-VAL CONJ-DIP CRM/PF 0.5 ML SYRINGE IM ONE (12:06)
[2023-09-21] MEDS: HYDROCHLOROTHIAZIDE 12.5 MG CAPSULE (FP) PO SCH (14:31)
[2023-09-21] MEDS: BACLOFEN 10 MG TABLET (FP) PO SCH (14:31)
[2023-09-22] MEDS: COLLOIDAL OATMEAL 1 BAR EACH TP PRN (09:45)
[2023-09-22] MEDS: AMMONIUM LACTATE 12% LOTION 225 GM BOTTLE TP PRN (09:47)
[2023-09-26] MEDS: BENZOCAINE/MENTHOL (CHLORASEPTIC ) LOZENGE MM PRN (06:11)
[2023-09-27] MEDS: NICOTINE POLACRILEX 4 MG GUM BUC PRN (13:28)
[2023-09-28] MEDS: HYDROCHLOROTHIAZIDE 25 MG TABLET (FP) PO SCH (07:47)
[2023-09-28] MEDS ORDERED: HYDROCHLOROTHIAZIDE 12.5 MG CAPSULE (FP) PO SCH (08:00)
[2023-10-01] MEDS: FUROSEMIDE 40 MG TABLET (FP) PO SCH (13:22)
[2023-10-01] MEDS ORDERED: FUROSEMIDE 40 MG TABLET (FP) PO SCH (14:00)
[2023-10-01] MEDS: VITAMINS A AND D TOPICAL OINTMENT 60 GM TUBE TP SCH (21:06)
[2023-10-05] MEDS ORDERED: FUROSEMIDE 40 MG TABLET (FP) PO SCH (14:00)
[2023-10-08] MEDS ORDERED: FUROSEMIDE 20 MG TABLET (FP) PO SCH (14:00)
[2023-10-08] MEDS: FUROSEMIDE 20 MG TABLET (FP) PO SCH (14:16)
[2023-10-10 06:36] VITALS: TEMP 97.6
[2023-10-10 11:07] VITALS: BP 151/74; PULSE 97
== END 2023-10-10 10:25 | disposition home or self-care (01) | DRG 772 ==
LOC: YASAS 15:06 → Y5N 19:34
PROVIDERS: ADMIT Allergy & Immunology; ATTEND Psychiatry & Neurology Pain Medicine
PROC: HZ42ZZZ Group Counseling for Substance Abuse Treatment, Cognitive-Behavioral (ICD-10-PCS; principal; 2023-09-19)
DX: F11.20 Opioid dependence, uncomplicated (principal); F14.20 Cocaine dependence, uncomplicated; F17.210 Nicotine dependence, cigarettes, uncomplicated; F19.282 Other psychoactive substance dependence with psychoactive substance-induced sleep disorder; F19.24 Other psychoactive substance dependence with psychoactive substance-induced mood disorder; F25.9 Schizoaffective disorder, unspecified; I10 Essential (primary) hypertension; I73.9 Peripheral vascular disease, unspecified; L85.3 Xerosis cutis; L81.8 Other specified disorders of pigmentation; R60.0 Localized edema; Z20.822 Contact with and (suspected) exposure to COVID-19; Z89.412 Acquired absence of left great toe; Z88.8 Allergy status to other drugs, medicaments and biological substances
CPT/HCPCS: 36415; 80053; 80307; 81003; 82962; 83036; 85027; 86780; 87635; 90677; J0475